=== PATIENT | female | born 1965 | race Caucasian/White ===

== ENCOUNTER → 2017-11-08 07:39 | Outpatient (CLI) | payer OTHER, SELFPAY ==
[2017-11-08 08:13] LABS: Absolute Lymphocyte Count 2.46 X10^3/ul (0.83-4.51); Absolute Neutrophil Count 3.1 X10^3/uL (2.0-7.7); Basophil# 0.02 X10^3/uL; Basophil% 0.3 % (0-1); Eosinophil# 0.16 X10^3/uL; Eosinophils% 2.6 % (0-5); Hematocrit 36.7 % (37-47); Hemoglobin 11.8 g/dl (12.0-15.0); Lymphocyte # 2.46 X10^3/ul (4.0); Lymphocyte % 40.1 % (19-41); Mean Corp Hgb Conc 32.2 g/gl (32-36); Mean Corpuscular Hgb 28.4 pg (27.0-32.0); Mean Corpuscular Volume 88.4 fL (81-99); Mean Platelet Vol. 8.2 fl (6.2-12.0); Monocyte# 0.39 X10^3/uL; Monocyte% 6.4 % (0-10); Neutrophil % 50.6 % (47-70); Platelet Count 226 K/mm3 (150-450); RBC Distribution Width CV 13.2 % (11.6-14.6); RBC Distribution Width SD 42.9 fl (35.1-43.9); Red Blood Count 4.15 M/mm3 (4.2-5.4); White Blood Count 6.1 K/mm3 (4.4-11.0)
[2017-11-08 08:16] LABS: POSITIVE COUNT NO; POSITIVE DIFFERENTIAL NO; POSITIVE MORPHOLOGY NO
[2017-11-08 08:42] LABS: ALB/GLOB Ratio 1.2 RATIO (0.9-2.4); AST(SGOT) 32 U/L (15-37); Alanine Aminotransfer ALT/SGPT 41 U/L (13-56); Albumin, Serum 4.2 g/dL (3.2-5.0); Alkaline Phosphatase 116 U/L (45-117); Anion Gap 7 (5-15); BUN 11 mg/dL (7-18); BUN/Creat Ratio 16.5 RATIO (10-20); Calcium,Total 9.2 mg/dL (8.5-10.1); Chloride 101 mmol/L (98-107); Creatinine, Serum 0.67 mg/dL (0.55-1.02); EST Glomerular Filtration Rate 100 mL/min (>60); Est Glom Filt Rate - Afr Amer 120 mL/min (>60); Globulin 3.5 g/dL (2.2-4.2); Glucose 82 mg/dL (74-106); Potassium 3.6 mmol/L (3.5-5.1); Protein, Total 7.7 g/dL (6.4-8.2); Sodium Level 139 mmol/L (136-145)
== END ==
PROVIDERS: Family Provider Family Medicine; PCP Family Medicine; Visit Provider Internal Medicine Rheumatology
DX: M06.4 Inflammatory polyarthropathy (principal); M35.00 Sjogren syndrome, unspecified; M70.61 Trochanteric bursitis, right hip
CPT/HCPCS: 36415; 80053; 85025

== ENCOUNTER 2018-03-18 11:56 | Day surgery (SDC) | payer OTHER, SELFPAY ==
[2018-03-18 12:12] VITALS: BP 130/64; PULSE 59; RESP 16; TEMP 36; O2SAT 100; BMI 24.0
--- NOTE | 2018-03-18 14:09 | HP.PCM_ITS ---
History and Physical Date of Admission: 03/18/18 HISTORY AND PHYSICAL ? Kylie Bass 1965 ? REFERRING PHYSICIAN: ~~Francisco Eddy, DO ? CHIEF COMPLAINT: ~~colon consult ? HPI: The patient is a 52 year old female referred for endoscopy. ~Kylie notes no history of colon complaints. ? The patient ~notes no history of upper GI complaints. ? Kylie has not~undergone prior endoscopy. ~ ? The patient is being seen by me today at the request of Dr. Eddy~for my opinion and advice regarding screening colonoscopy. ? ? PAST MEDICAL HISTORY PAST MEDICAL HISTORY Diagnosis Date ? Allergic rhinitis ? ? Degeneration of cervical intervertebral disc 09/26/2007 ? cervical spine MRI 2006 [facility] ? Fibroma of foot ? ? Muscle strains and tendinitis 04/17/2007 ? Right shoulder, right elbow, left knee ? Sjoegren syndrome (HCC) ? ? ? PAST SURGICAL HISTORY PAST SURGICAL HISTORY Procedure Laterality Date ? BIOPSY OF LACRIMAL GLAND ? 07/02/12 ? right ? PAST SURGICAL HISTORY OF ? 1994 ? [facility] ? PAST SURGICAL HISTORY OF ? 01/22/2014 ? Knee surgery, laparoscopic (Dr. Lee)--Synovectomy and arthroscopic lateral release right knee ? ? CURRENT MEDICATIONS ? Current Outpatient Prescriptions: cycloSPORINE (RESTASIS) 0.05 % ophthalmic emulsion Use 1 Drop in both eyes twice daily. hydroxychloroquine (PLAQUENIL) 200 mg tablet Take 2 tablets by mouth once daily. ibuprofen 800 mg tablet Take 1 tablet by mouth every 8 hours as needed. FOR PAIN. (Patient not taking: Reported on 01/23/2018 ) ? No current facility-administered medications for this visit. ? ALLERGIES: Patient has no known allergies. ? PERSONAL HISTORY: SOCIAL HISTORY Social History ~~Marital status: ~~~~~~~~~~~~Spouse name: Nikunj ~~~~~~~~~~ ~~Years of education: 14 ~~~~~~~~~~~~~Number of children: 2 ~~~~~~~~ ? Occupational History Occupation ~~~~~~~~~Employer ~~~~~~~~~~~Comment ~~~~~~~~~~~~ [employer] ~[employer] ? Social History Main Topics ~~Smoking status: Never Smoker ~~~~~~~~~~~~~~~~~~~~~~~~~~~~~~~~~~~~~~~~~~~~~~~~~ ~~~~~~~~ ? ~~Alcohol use: No ~~~~~~~~~ ~~Sexual activity: Yes ~~~~~~~~~~~~~~Partners with: Male ~~~~~ control/protection: Vasectomy ? ? FAMILY HISTORY: FAMILY HISTORY FAMILY HISTORY Problem Relation Age of Onset ? Cancer Mother ? ? ? Breast, cervical, Liver ? Heart Mother ? ? Cataract Mother ? ? Cancer Father ? ? ? Lung (smoker) ? Hypertension Father ? ? Diabetes Father ? ? None Sister ? ? None Sister ? ? None Sister ? ? None Sister ? ? None Brother ? ? None Brother ? ? REVIEW OF SYMPTOMS: ~~The review of systems data was entered by the nurse and reviewed by me ? Nursing Notes: Leeann Ritter LPN ~01/23/2018 ~7:54 AM ~Signed REVIEW OF SYSTEMS: ~~~~~General:~~~The patient denies fatigue, denies weight loss, denies weight gain, denies feeling hot, and NOTES feelings of cold. ~~~~~Eyes: ~The patient denies glaucoma, denies eye injury/surgery, wears glasses or contacts. ~~~~~Ear/Nose/Throat: ~The patient denies allergies, denies hayfever, denies ear infections, and denies bloody noses. ~~~~~Cardiovascular: ~The patient denies chest pain, denies heart disease, denies high blood pressure,denies cardiac stent, denies prior heart attack, denies irregular heart beat, denies high cholesterol, ~denies poor circulation, denies heart failure, other cardiac issues, denies claudication, denies cold feet, denies peripheral arterial stent. ~~~~~Respiratory: ~The patient denies tuberculosis, denies pneumonia, denies frequent cough, denies pulmonary embolism, denies shortness of breath, and denies coughing up blood. ~~~~~Gastrointestinal: ~The patient denies difficulty swallowing, denies acid reflux, denies ulcers, denies vomiting, denies jaundice/hepatitis, denies gallbladder problems, denies black or tarry stools, denies hemorrhoids, denies bleeding from rectum, denies diverticulitis, NOTES constipation, denies diarrhea , denies loss of stool control, and denies hernias. ~~~~~Kidney/Bladder: ~The patient denies kidney stones, denies urine infections , and denies bloody urine. ~~~~~Skin: ~The patient denies a history of skin cancer, denies bleeding/ changing moles, and denies a history of skin rash. ~~~~~Neurologic: ~The patient denies a history of epilepsy/convulsions, denies headaches, denies head/spinal injuries, and denies stroke/TIA. ~~~~~Psychiatric: ~The patient denies psychiatric medications, denies depression , and denies voices, denies substance abuse. ~~~~~Endocrine: ~The patient denies thyroid disorders, denies diabetes, and denies hormonal problems. ~~~~~Hematologic: ~The patient denies a history of bruising, denies bleeding, and denies anemia, denies blood clots. ~~~~~Infections: ~The patient denies a history of measles and mumps, denies rheumatic fever, and denies sexually transmitted diseases. ~~~~~Musculoskeletal: ~The patient denies back pain/injury, denies back problems , denies sciatica, denies knee/foot trouble, NOTES arthritis, or denies gout. ? ? When was patient's last Mammogram screening? 03/2017 ? ~Last Colonoscopy: ~None ? Leeann Ritter LPN ~ PHYSICAL EXAMINATION: ? General: ~The patient is 52 year old female, well nourished, well hydrated in no acute distress. ~The patient is oriented to time, place, and person. ? VITALS: Blood pressure 110/58, pulse 64, height 162.6 cm (5' 4), weight 64.9 kg (143 lb).~Body mass index is 24.55 kg/m?.~ ? HEENT: ~Normal cephalic, ataumatic, pupils are equally round, sclera are anicteric, mucous membranes are moist, oropharynx is clear. ~Neck has no masses , asymmetry or lymphadenopathy. ~Thyroid is unremarkable. ? Respiratory: ~Clear to auscultation and percussion. ~Normal respiratory excursion and pattern. ? Cardiac: ~Examination is regular rate and rhythm. ? Abdominal exam: ~Soft, nontender, ~with no palpable masses. ~No hepatosplenomegaly. ~No palpable hernias. ? Rectal exam: exam deferred ? Extremities: ~no clubbing, cyanosis or edema. ~No adenopathy. ? Other: ? LABORATORY VALUES: As Noted ? RADIOLOGIC STUDIES: ~As Noted ? Assessment ~ IMPRESSION: screening colonoscopy ? PLAN: ~I plan to perform lower~endoscopy. ~~We discussed the risks and benefits of the planned endoscopy. ~I have informed the patient that complications can occur including failure to complete the endoscopy and perforation. ~The patient had the opportunity to ask questions concerning the planned endoscopy. ~My staff has also explained the procedure to the patient in understandable terms and has given the patient printed material concerning the procedure. ~The patient freely consents to surgery. ? I plan to use golytely bowel preparation for endoscopy ? I plan for monitored anesthetic care. ? Diagnoses: (Z12.11) Special screening for malignant neoplasms, colon ~(primary encounter diagnosis) ? My findings have been communicated to Dr. Eddy~via shared medical record. ~ ? ~~ Return to Clinic: The patient is instructed to follow-up with me after the testing has been completed. ? Hong Bingham MD
[2018-03-18 15:35] VITALS: BP 110/61; BP 130/64; PULSE 76; RESP 18; TEMP 36.4; O2SAT 99
[2018-03-18 15:40] VITALS: BP 120/57; BP 130/64; PULSE 78; RESP 18; O2SAT 97
[2018-03-18 15:45] VITALS: BP 103/73; BP 130/64; PULSE 68; RESP 18; O2SAT 96
[2018-03-18 15:50] VITALS: BP 130/64; BP 142/71; PULSE 64; RESP 16; TEMP 36.3; O2SAT 97
--- NOTE | 2018-03-18 19:04 | PCM.OPRPT ---
Report of Operation Date of Procedure: 03/18/18 Pre-Operative Diagnosis: screening for colon cancer Post-Operative Diagnosis: normal colonoscopy Surgery/Procedure Performed:: colonoscopy publishing director: None Type of Anesthesia:: MAC Anesthesiologist: Kaden Nguyễn - ASA2 Specimen's removed: none Description of Procedure: The patient was brought to the endoscopy suite. Sign in was performed verifying patient, site, planned procedure, critical nursing information, the patient was monitored with cardiac, pulse oximetric, and blood pressure monitoring devices. Monitored anesthetic care was provided for sedation. Following IV sedation the patient was positioned for colonoscopy. A digital rectal exam was performed which revealed no palpable abnormalities The video colonoscope was inserted and advanced to the cecum as verified by the ileocecal valve, cecal base anatomic features and palpation. the entire colon was unremarkable. The scope was retroflexed and the anal verge was unremarkable. The patient tolerated the procedure well and was brought to recovery in stable condition. I recommend follow-up screening colonoscopy in 10 years.
== END 2018-03-18 16:17 | disposition home or self-care (01) ==
LOC: EN 11:56 → AC 11:58
PROVIDERS: Family Provider Family Medicine; PCP Family Medicine; Visit Provider Surgery
PROC: 0DJD8ZZ Inspection of Lower Intestinal Tract, Via Natural or Artificial Opening Endoscopic (ICD-10-PCS; CPT 45378; principal; 2018-03-18 12:55)
DX: Z12.11 Encounter for screening for malignant neoplasm of colon (principal); M35.00 Sjogren syndrome, unspecified; Z79.899 Other long term (current) drug therapy; Z78.0 Asymptomatic menopausal state
CPT/HCPCS: 45378; J7120; J2405

== ENCOUNTER → 2018-04-11 13:13 | Outpatient (CLI) | payer OTHER, SELFPAY ==
[2018-04-11 15:48] LABS: Absolute Lymphocyte Count 1.33 X10^3/ul (0.83-4.51); Absolute Neutrophil Count 3.3 X10^3/uL (2.0-7.7); Basophil# 0.01 X10^3/uL; Basophil% 0.2 % (0-1); Eosinophil# 0.08 X10^3/uL; Eosinophils% 1.6 % (0-5); Hematocrit 39.7 % (37-47); Hemoglobin 12.9 g/dl (12.0-15.0); Lymphocyte # 1.33 X10^3/ul (4.0); Lymphocyte % 25.8 % (19-41); Mean Corp Hgb Conc 32.5 g/gl (32-36); Mean Corpuscular Hgb 29.1 pg (27.0-32.0); Mean Corpuscular Volume 89.6 fL (81-99); Mean Platelet Vol. 8.7 fl (6.2-12.0); Monocyte# 0.41 X10^3/uL; Platelet Count 307 K/mm3 (150-450); RBC Distribution Width CV 13.2 % (11.6-14.6); RBC Distribution Width SD 42.9 fl (35.1-43.9); Red Blood Count 4.43 M/mm3 (4.2-5.4); White Blood Count 5.2 K/mm3 (4.4-11.0)
[2018-04-11 15:49] LABS: POSITIVE COUNT NO; POSITIVE DIFFERENTIAL NO; POSITIVE MORPHOLOGY NO
[2018-04-11 16:20] LABS: ALB/GLOB Ratio 1.1 RATIO (0.9-2.4); AST(SGOT) 21 U/L (15-37); Alanine Aminotransfer ALT/SGPT 28 U/L (13-56); Albumin, Serum 3.9 g/dL (3.2-5.0); Alkaline Phosphatase 115 U/L (45-117); Anion Gap 4 (5-15); BUN 12 mg/dL (7-18); Chloride 105 mmol/L (98-107); Creatinine, Serum 0.67 mg/dL (0.55-1.02); EST Glomerular Filtration Rate 99 mL/min (>60); Est Glom Filt Rate - Afr Amer 120 mL/min (>60); Globulin 3.7 g/dL (2.2-4.2); Glucose 71 mg/dL (74-106); Potassium 4.1 mmol/L (3.5-5.1); Protein, Total 7.6 g/dL (6.4-8.2); Sodium Level 140 mmol/L (136-145)
== END ==
PROVIDERS: Family Provider Family Medicine; PCP Family Medicine; Visit Provider Family Medicine
DX: M06.4 Inflammatory polyarthropathy (principal); M35.00 Sjogren syndrome, unspecified; M70.61 Trochanteric bursitis, right hip
CPT/HCPCS: 36415; 80053; 85025

== ENCOUNTER 2018-05-14 08:53 | Outpatient (RCR) | payer OTHER, SELFPAY | END 2018-05-24 23:59 | LOC: NS 08:53 | PROVIDERS: Family Provider Family Medicine; PCP Family Medicine; Visit Provider Family Medicine | DX: E66.3 Overweight (principal); Z68.24 Body mass index [BMI] 24.0-24.9, adult; Z71.3 Dietary counseling and surveillance | CPT/HCPCS: 97802 ==

== ENCOUNTER → 2018-05-20 14:34 | Outpatient (CLI) | payer OTHER, SELFPAY | PROVIDERS: Family Provider Family Medicine; PCP Family Medicine; Visit Provider Family Medicine | DX: Z12.31 Encounter for screening mammogram for malignant neoplasm of breast (principal) | CPT/HCPCS: 77063; 77067 ==

== ENCOUNTER 2018-06-10 08:50 | Outpatient (RCR) | payer OTHER, SELFPAY | END 2018-06-23 23:59 | LOC: NS 08:50 | PROVIDERS: Family Provider Family Medicine; PCP Family Medicine; Visit Provider Family Medicine | DX: E66.3 Overweight (principal); Z68.24 Body mass index [BMI] 24.0-24.9, adult; Z71.3 Dietary counseling and surveillance | CPT/HCPCS: 97803 ==

== ENCOUNTER 2018-07-15 09:00 | Outpatient (RCR) | payer OTHER, SELFPAY | END 2018-07-24 23:59 | LOC: NS 09:00 | PROVIDERS: Family Provider Family Medicine; PCP Family Medicine; Visit Provider Family Medicine | DX: E66.3 Overweight (principal); Z68.24 Body mass index [BMI] 24.0-24.9, adult; Z71.3 Dietary counseling and surveillance | CPT/HCPCS: 97803 ==

== ENCOUNTER 2018-08-05 09:01 | Outpatient (RCR) | payer OTHER, SELFPAY | END 2018-08-23 23:59 | LOC: NS 09:01 | PROVIDERS: Family Provider Family Medicine; PCP Family Medicine; Visit Provider Family Medicine | DX: E66.3 Overweight (principal); Z68.24 Body mass index [BMI] 24.0-24.9, adult; Z71.3 Dietary counseling and surveillance | CPT/HCPCS: 97803 ==

== ENCOUNTER → 2018-08-09 16:00 | Outpatient (CLI) | payer OTHER, SELFPAY ==
[2018-08-14 15:59] LABS: HPV Reflexed? NOT INDICATED
== END ==
PROVIDERS: Family Provider Family Medicine; PCP Family Medicine; Referring Provider Obstetrics & Gynecology; Visit Provider Obstetrics & Gynecology
DX: Z12.4 Encounter for screening for malignant neoplasm of cervix (principal)
CPT/HCPCS: 88175; G0145

== ENCOUNTER 2018-09-19 08:30 | Outpatient (RCR) | payer OTHER, SELFPAY | END 2018-09-23 23:59 | LOC: NS 08:30 | PROVIDERS: Family Provider Family Medicine; PCP Family Medicine; Visit Provider Family Medicine | DX: E66.3 Overweight (principal); Z68.24 Body mass index [BMI] 24.0-24.9, adult; Z71.3 Dietary counseling and surveillance | CPT/HCPCS: 97803 ==

== ENCOUNTER 2018-10-22 08:30 | Outpatient (RCR) | payer OTHER, SELFPAY | END 2018-10-24 23:59 | LOC: NS 08:30 | PROVIDERS: Family Provider Family Medicine; PCP Family Medicine; Visit Provider Family Medicine | DX: E66.3 Overweight (principal); Z68.24 Body mass index [BMI] 24.0-24.9, adult; Z71.3 Dietary counseling and surveillance | CPT/HCPCS: 97803 ==

== ENCOUNTER 2018-12-02 09:23 | Outpatient (RCR) | payer OTHER, SELFPAY | END 2018-12-22 23:59 | LOC: NS 09:23 | PROVIDERS: Family Provider Family Medicine; PCP Family Medicine; Visit Provider Family Medicine | DX: E66.3 Overweight (principal); Z68.24 Body mass index [BMI] 24.0-24.9, adult; Z71.3 Dietary counseling and surveillance | CPT/HCPCS: 97803 ==

== ENCOUNTER → 2019-06-05 12:14 | Outpatient (CLI) | payer OTHER, SELFPAY ==
--- NOTE | 2019-06-05 12:16 | BI_ITS ---
MAMMOGRAPHY - BILATERAL SCREENING REASON FOR EXAM: Female, 54 years old. Routine annual screening examination. PERTINENT HISTORY: Mother with breast cancer. Aunts with breast cancer. TECHNIQUE: Digital bilateral breast mounika (3D mammographic acquisition) in the CC and MLO projections. 2-D mediolateral oblique (MLO) and craniocaudad (CC) views of both breasts were obtained. CAD: Full Field Digital Mammography with Computer Added Detection was performed. COMPARISON: Comparison is made with prior study dated May 20, 2018 and May 17, 2017 FINDINGS: Breast Composition: The breasts are heterogeneously dense, which may obscure small masses. There are no dominant masses or suspicious calcifications. No other significant abnormalities are identified. There has been no significant change since the prior study. BI/SCREEN MAMM (CAD) W/MOUNIKA BILAT IMPRESSION: Stable bilateral screening mammogram. Yearly follow-up mammogram recommended. (A) ASSESSMENT CATEGORY: BIRADS Category 1: Negative. A letter regarding these results will be sent to the patient by the facility within 30 days. Approximately 10% of breast cancers are not detected by mammography. A normal mammogram should not delay biopsy of a clinically suspicious abnormality. [id number] Electronically Signed: Beck Qiu, at 8:58 EDT , Service support ,
== END ==
PROVIDERS: Family Provider Family Medicine; PCP Family Medicine; Referring Provider Family Medicine; Visit Provider Family Medicine
DX: Z12.31 Encounter for screening mammogram for malignant neoplasm of breast (principal)
CPT/HCPCS: 77063; 77067

== ENCOUNTER → 2019-08-11 15:37 | Outpatient (CLI) | payer OTHER, SELFPAY ==
[2019-08-14 12:07] LABS: Age Gdln ACOG Testing 30-65 (.)
[2019-08-14 13:38] LABS: HPV APTIMA, High Risk Negative (Negative)
[2019-08-14 13:39] LABS: HPV Reflexed? YES, CHARGE PATIENT
== END ==
LOC: WOBLAB 15:38 → LABSPEC 15:46
PROVIDERS: PCP Family Medicine; Visit Provider Obstetrics & Gynecology
DX: Z12.4 Encounter for screening for malignant neoplasm of cervix (principal)
CPT/HCPCS: 87624; 88175; G0145

== ENCOUNTER → 2020-02-20 09:56 | Outpatient (CLI) | payer OTHER, SELFPAY ==
--- NOTE | 2020-02-20 09:59 | RAD_ITS ---
STUDY: X-RAY - RIGHT FOOT CLINICAL: Female, 54 years old. Right heel pain since October TECHNIQUE: 3 view(s) of the foot. COMPARISON: None. FINDINGS: There is a plantar calcaneal spur. Normal visualized subtalar, talonavicular, calcaneocuboid, tarsal and tarsometatarsal articulations. Normal metatarsi. Normal metatarsophalangeal joint of the great toe. Normal tibial and fibular sesamoid bones. Normal interphalangeal joint of the great toe. Normal phalanges of the great toe. Normal second through fifth metatarsophalangeal joints. Normal interphalangeal joints and phalanges of the lesser toes. The soft tissue structures are unremarkable. RAD/Foot min 3 Views IMPRESSION: Plantar spur. Electronically Signed: Beck Qiu, at 10:28 EDT , Service support ,
--- NOTE | 2020-02-20 09:59 | RAD_ITS ---
STUDY: X-RAY - LEFT FOOT CLINICAL: Female, 54 years old. Pain since October, some small bumps along bottom of foot TECHNIQUE: 3 view(s) of the foot. COMPARISON: None. FINDINGS: There is a plantar calcaneal spur. Normal visualized subtalar, talonavicular, calcaneocuboid, tarsal and tarsometatarsal articulations. Normal metatarsi. Normal metatarsophalangeal joint of the great toe. Normal tibial and fibular sesamoid bones. Normal interphalangeal joint of the great toe. Normal phalanges of the great toe. Normal second through fifth metatarsophalangeal joints. Normal interphalangeal joints and phalanges of the lesser toes. The soft tissue structures are unremarkable. RAD/Foot min 3 Views IMPRESSION: Plantar spur. Electronically Signed: Beck Qiu, at 10:30 EDT , Service support ,
== END ==
PROVIDERS: PCP Family Medicine; Referring Provider Podiatrist; Visit Provider Podiatrist
DX: M72.2 Plantar fascial fibromatosis (principal)
CPT/HCPCS: 73630

== ENCOUNTER 2020-06-23 08:08 | Outpatient (RCR) | payer OTHER, SELFPAY | END 2020-06-23 23:59 | LOC: EMPH 08:08 | PROVIDERS: PCP Family Medicine; Referring Provider Family Medicine Geriatric Medicine; Visit Provider Family Medicine Geriatric Medicine | DX: Z11.59 Encounter for screening for other viral diseases (principal) | CPT/HCPCS: 87635; U0003 ==

== ENCOUNTER → 2020-07-23 13:53 | Outpatient (CLI) | payer OTHER, SELFPAY ==
--- NOTE | 2020-07-23 13:57 | BI_ITS ---
MAMMOGRAPHY - BILATERAL SCREENING REASON FOR EXAM: Female, 55 years old. Routine annual screening examination. PERTINENT HISTORY: Mother with breast cancer. Aunts with breast cancer. TECHNIQUE: Digital bilateral breast mounika (3D mammographic acquisition) in the CC and MLO projections. 2-D mediolateral oblique (MLO) and craniocaudad (CC) views of both breasts were obtained. CAD: Full Field Digital Mammography with Computer Added Detection was performed. COMPARISON: Comparison is made with prior study date 06/05/2019 and 05/20/2018. FINDINGS: Breast Composition: The breasts are heterogeneously dense, which may obscure small masses. There are no dominant masses or suspicious calcifications. No other significant abnormalities are identified. There has been no significant change since the prior study. BI/SCREEN MAMM (CAD) W/MOUNIKA BILAT IMPRESSION: Stable bilateral screening mammogram. Yearly follow-up mammogram recommended. (A) ASSESSMENT CATEGORY: BIRADS Category 1: Negative. A letter regarding these results will be sent to the patient by the facility within 30 days. Approximately 10% of breast cancers are not detected by mammography. A normal mammogram should not delay biopsy of a clinically suspicious abnormality. [id number] Electronically Signed: Beck Qiu, at 15:22 EDT , Service support ,
== END ==
PROVIDERS: PCP Family Medicine; Referring Provider Family Medicine; Visit Provider Family Medicine
DX: Z12.31 Encounter for screening mammogram for malignant neoplasm of breast (principal)
CPT/HCPCS: 77063; 77067

== ENCOUNTER → 2020-08-16 | Outpatient (CLI) | payer OTHER, SELFPAY ==
[2020-08-23 01:45] LABS: HPV APTIMA, High Risk Negative (Negative)
== END | disposition home or self-care (01) ==
LOC: LABSPEC 15:34
PROVIDERS: PCP Family Medicine; Visit Provider Obstetrics & Gynecology
DX: Z12.4 Encounter for screening for malignant neoplasm of cervix (principal)
CPT/HCPCS: 87624; 88175; G0145

== ENCOUNTER 2021-01-19 07:16 | Outpatient (RCR) | payer OTHER, SELFPAY | END 2021-01-21 23:59 | LOC: EMPH 07:16 | PROVIDERS: PCP Family Medicine; Referring Provider Family Medicine Geriatric Medicine; Visit Provider Family Medicine Geriatric Medicine | DX: Z03.818 Encounter for observation for suspected exposure to other biological agents ruled out (principal) | CPT/HCPCS: 87426 ==

== ENCOUNTER 2021-02-16 09:10 | Outpatient (RCR) | payer OTHER, SELFPAY | END 2021-02-21 23:59 | LOC: EMPH 09:10 | PROVIDERS: PCP Family Medicine; Referring Provider Family Medicine Geriatric Medicine; Visit Provider Family Medicine Geriatric Medicine | DX: Z03.818 Encounter for observation for suspected exposure to other biological agents ruled out (principal) | CPT/HCPCS: 87426 ==

== ENCOUNTER → 2021-05-03 13:49 | Outpatient (CLI) | payer OTHER, SELFPAY ==
[2021-05-03 15:53] LABS: Vitamin D,25 Hydroxy 37.8 ng/mL
[2021-05-03 15:56] LABS: T4 Free Direct 0.91 ng/dL (0.76-1.46); Thyroid Stim Hormone (TSH) 1.14 uIU/mL (0.358-3.74)
== END ==
PROVIDERS: PCP Family Medicine; Referring Provider Family Medicine; Visit Provider Family Medicine
DX: K59.00 Constipation, unspecified (principal); R53.83 Other fatigue; E55.9 Vitamin D deficiency, unspecified
CPT/HCPCS: 36415; 82306; 84439; 84443

== ENCOUNTER → 2021-07-25 11:03 | Outpatient (CLI) | payer OTHER, SELFPAY ==
--- NOTE | 2021-07-25 11:06 | BI_ITS ---
MAMMOGRAPHY - BILATERAL SCREENING REASON FOR EXAM: Female, 56 years old. Routine annual screening examination. PERTINENT HISTORY: Mother with breast cancer. Aunts with breast cancer. TECHNIQUE: Digital bilateral breast mounika (3D mammographic acquisition) in the CC and MLO projections. 2-D mediolateral oblique (MLO) and craniocaudad (CC) views of both breasts were obtained. CAD: Full Field Digital Mammography with Computer Added Detection was performed. COMPARISON: Comparison is made with prior study 07/23/2020 and 06/05/2019. FINDINGS: Breast Composition: The breasts are heterogeneously dense, which may obscure small masses. There are no dominant masses or suspicious calcifications. No other significant abnormalities are identified. There has been no significant change since the prior study. BI/SCRN MAMM (CAD)W/MOUNIKA BILAT IMPRESSION: Stable bilateral screening mammogram. Yearly follow-up mammogram recommended. (A) ASSESSMENT CATEGORY: BIRADS Category 1: Negative. A letter regarding these results will be sent to the patient by the facility within 30 days. Approximately 10% of breast cancers are not detected by mammography. A normal mammogram should not delay biopsy of a clinically suspicious abnormality. [id number] Electronically Signed: Beck Qiu MD at 13:06 EDT , Service support ,
== END ==
PROVIDERS: PCP Family Medicine; Visit Provider Family Medicine
DX: Z12.31 Encounter for screening mammogram for malignant neoplasm of breast (principal)
CPT/HCPCS: 77063; 77067

== ENCOUNTER 2021-12-26 13:38 | Outpatient (CLI) | payer OTHER, SELFPAY ==
[2022-01-03 13:42] LABS: HPV APTIMA, High Risk Negative (Negative)
== END 2021-12-26 23:59 | disposition home or self-care (01) ==
PROVIDERS: PCP Family Medicine; Visit Provider Student in an Organized Health Care Education/Training Program
DX: Z12.4 Encounter for screening for malignant neoplasm of cervix (principal)
CPT/HCPCS: 87624; 88175; G0145

== ENCOUNTER 2022-05-18 09:54 | Outpatient (RCR) | payer OTHER, SELFPAY | END 2022-05-24 23:59 | LOC: NS 09:54 | PROVIDERS: PCP Family Medicine; Visit Provider Family Medicine | DX: Z71.3 Dietary counseling and surveillance (principal); E66.3 Overweight; Z68.25 Body mass index [BMI] 25.0-25.9, adult | CPT/HCPCS: 97802 ==

== ENCOUNTER 2022-06-12 13:28 | Outpatient (RCR) | payer OTHER, SELFPAY | END 2022-06-23 23:59 | LOC: NS 13:28 | PROVIDERS: PCP Family Medicine; Visit Provider Family Medicine | DX: Z71.3 Dietary counseling and surveillance (principal) | CPT/HCPCS: 97803 ==

== ENCOUNTER 2022-07-20 14:20 | Outpatient (RCR) | payer OTHER, SELFPAY | END 2022-07-24 23:59 | LOC: NS 14:20 | PROVIDERS: PCP Family Medicine; Referring Provider Family Medicine; Visit Provider Family Medicine | DX: Z71.3 Dietary counseling and surveillance (principal) | CPT/HCPCS: 97803 ==

== ENCOUNTER 2022-08-07 12:53 | Outpatient (RCR) | payer OTHER, SELFPAY | END 2022-08-23 23:59 | LOC: NS 12:53 | PROVIDERS: PCP Family Medicine; Referring Provider Family Medicine; Visit Provider Family Medicine | DX: Z71.3 Dietary counseling and surveillance (principal); E66.9 Obesity, unspecified | CPT/HCPCS: 97803 ==

== ENCOUNTER → 2022-08-11 | Outpatient (CLI) | payer OTHER, SELFPAY ==
--- NOTE | 2022-08-11 14:27 | BI_ITS ---
MAMMOGRAPHY - BILATERAL SCREENING REASON FOR EXAM: Female, 57 years old. Routine annual screening examination. PERTINENT HISTORY: Mother with breast cancer. Aunt with breast cancer. TECHNIQUE: Digital bilateral breast mounika (3D mammographic acquisition) in the CC and MLO projections. 2-D mediolateral oblique (MLO) and craniocaudad (CC) views of both breasts were obtained. CAD: Full Field Digital Mammography with Computer Added Detection was performed. COMPARISON: Comparison is made with prior study 07/25/2021 and 07/23/2020. FINDINGS: Breast Composition: The breasts are heterogeneously dense, which may obscure small masses. There are no dominant masses or suspicious calcifications. No other significant abnormalities are identified. There has been no significant change since the prior study. BI/SCRN MAMM (CAD)W/MOUNIKA BILAT IMPRESSION: Stable bilateral screening mammogram. Yearly follow-up mammogram recommended. (A) ASSESSMENT CATEGORY: BIRADS Category 1: Negative. A letter regarding these results will be sent to the patient by the facility within 30 days. Approximately 10% of breast cancers are not detected by mammography. A normal mammogram should not delay biopsy of a clinically suspicious abnormality. [id number] Electronically Signed: Beck Qiu MD at 15:28 EST ,
== END | disposition home or self-care (01) ==
LOC: OPBI 14:26
PROVIDERS: PCP Family Medicine; Referring Provider Family Medicine; Visit Provider Family Medicine
DX: Z12.31 Encounter for screening mammogram for malignant neoplasm of breast (principal); Z80.3 Family history of malignant neoplasm of breast
CPT/HCPCS: 77063; 77067

== ENCOUNTER → 2022-11-08 | Outpatient (CLI) | payer OTHER, SELFPAY ==
[2022-11-08 11:11] LABS: Mucous, Urine 0 SEEN /hpf (<or=2+); Red Blood Cells-Urine 0 SEEN /hpf (0-5)
[2022-11-08 11:30] LABS: Color, Urine Yellow (Yellow); Glucose, Dipstick Normal (Normal); Ketone-Dipstick Negative (Negative); Leukocyte Esterase-Dipstick 500 /ul (Negative); Nitrite-Dipstick Negative (Negative); Occult Blood-Urine 25 /ul (Negative); Protein-Dipstick 15 mg/dl (Negative); Urine Bilirubin Dipstick Negative (Negative); Urine Clarity Sl. Cloudy (Clear); Urine Urobilinogen Normal (Normal); Urine pH 6.5 (5.0 - 8.0)
[2022-11-08 11:49] LABS: Bacteria RARE /hpf (None Seen); Squamous Epithelial Cells - UA 0-5 SEEN /hpf (5-10); White Blood Cells 5-10 SEEN /hpf (0-5)
== END | disposition home or self-care (01) ==
LOC: LABSPEC 10:29
PROVIDERS: PCP Family Medicine; Referring Provider Physician Assistant Surgical; Visit Provider Physician Assistant Surgical
DX: R30.0 Dysuria (principal)
CPT/HCPCS: 81001; 87086

== ENCOUNTER → 2023-05-10 | Outpatient (CLI) | payer OTHER, SELFPAY ==
[2023-05-10 21:39] LABS: Vitamin D,25 Hydroxy 28.5 ng/mL
== END | disposition home or self-care (01) ==
LOC: LAB 15:40
PROVIDERS: PCP Family Medicine; Referring Provider Family Medicine; Visit Provider Family Medicine
DX: E55.9 Vitamin D deficiency, unspecified (principal)
CPT/HCPCS: 36415; 82306

== ENCOUNTER → 2023-05-24 | Outpatient (CLI) | payer OTHER, SELFPAY ==
--- NOTE | 2023-05-24 12:58 | BD_ITS ---
STUDY: DUAL ENERGY X-RAY ABSORPTIOMETRY / DXA REASON FOR EXAM: Female, 58 years old. V76.12ScreeningBONE DENSITY REASON FOR EXAM TECHNIQUE: Bone Mineral Density (BMD) measurements of lumbar spine and bilateral hips were obtained. COMPARISON: None. FINDINGS: Lumbar Spine (L1-L4): g/cm2 (0.721) / T-score (-3.0) / Z-score (-1.8) Findings are suggestive of osteoporosis with a high fracture risk. Left Femur Total: g/cm2 (0.739) / T-score (-1.7) / Z-score (-0.9) Left Femoral Neck: g/cm2 (0.639) / T-score (-1.9) / Z-score (-0.8) Right Femur Total: g/cm2 (0.759) / T-score (-1.5) / Z-score (-0.8) Right Femoral Neck: g/cm2 (0.635) / T-score (-1.9) / Z-score (0.8) BD/Dexa Bone Density Study IMPRESSION: The patient is considered osteoporotic as outlined below according to World [employer] Organization (WHO) criteria with a high fracture risk. Reference Information: The T-score is the number of standard deviations above or below the standard which is normal for young adults at their peak bone mineral density. The World Health Organization (WHO) interprets the T-scores as follows: Above -1 Normal bone density Between -1 and -2.5 Osteopenia Equal to / or below -2.5 Osteoporosis As a practical clinical guideline, osteopenia may be graded as follows: Mild -1 through -1.5 Moderate -1.6 through -2.0 Severe -2.1 through -2.4 The Z-score is the number of standard deviations above or below age-matched controls. A Z-score of less than -1.5 would be considered abnormal. References: 1. NIH Osteoporosis and Related Bone Diseases www osteo.org 2. International Society for Clinical Densitometry www iscd.org 3. National Osteoporosis Foundation www nof.org Electronically Signed: Beck Qiu MD at 12:28 EDT ,
== END | disposition home or self-care (01) ==
LOC: OPBD 12:50
PROVIDERS: PCP Family Medicine; Referring Provider Family Medicine; Visit Provider Family Medicine
DX: Z13.820 Encounter for screening for osteoporosis (principal)
CPT/HCPCS: 77080

== ENCOUNTER 2023-06-21 13:26 | Outpatient (CLI) | payer OTHER, SELFPAY ==
[2023-06-21 13:43] VITALS: BP 115/48; PULSE 70; RESP 16; TEMP 36; O2SAT 100
[2023-06-21] MEDS: DENOSUMAB 60 MG/ML SC (13:48)
== END 2023-06-21 13:27 | disposition home or self-care (01) ==
LOC: MEDOUTP 13:26
PROVIDERS: PCP Family Medicine; Referring Provider Family Medicine; Visit Provider Family Medicine
DX: M81.0 Age-related osteoporosis without current pathological fracture (principal)
CPT/HCPCS: 96372; J0897

== ENCOUNTER → 2023-08-22 | Outpatient (CLI) | payer OTHER, SELFPAY ==
--- NOTE | 2023-08-22 07:32 | BI_ITS ---
MAMMOGRAPHY - BILATERAL SCREENING REASON FOR EXAM: Female, 58 years old. Routine annual screening examination. PERTINENT HISTORY: Mother with breast cancer. Aunts with breast cancer. TECHNIQUE: Digital bilateral breast mounika (3D mammographic acquisition) in the CC and MLO projections. 2-D mediolateral oblique (MLO) and craniocaudad (CC) views of both breasts were obtained. CAD: Full Field Digital Mammography with Computer Added Detection was performed. COMPARISON: Comparison is made with prior study dated August 11, 2022 and July 25, 2021. FINDINGS: Breast Composition: The breasts are heterogeneously dense, which may obscure small masses. There are no dominant masses or suspicious calcifications. No other significant abnormalities are identified. There has been no significant change since the prior study. BI/SCRN MAMM (CAD)W/MOUNIKA BILAT IMPRESSION: Stable bilateral screening mammogram. Yearly follow-up mammogram recommended. (A) ASSESSMENT CATEGORY: BIRADS Category 1: Negative. A letter regarding these results will be sent to the patient by the facility within 30 days. Approximately 10% of breast cancers are not detected by mammography. A normal mammogram should not delay biopsy of a clinically suspicious abnormality. [id number] Electronically Signed: Beck Qiu MD at 9:04 EST ,
== END | disposition home or self-care (01) ==
LOC: OPBI 07:30
PROVIDERS: PCP Family Medicine; Referring Provider Family Medicine; Visit Provider Family Medicine
DX: Z12.31 Encounter for screening mammogram for malignant neoplasm of breast (principal); Z80.3 Family history of malignant neoplasm of breast
CPT/HCPCS: 77063; 77067

== ENCOUNTER → 2023-09-13 | Outpatient (CLI) | payer OTHER, SELFPAY ==
[2023-09-13 08:38] LABS: PTHIN 102.8 pg/mL (18.4-80.1)
[2023-09-13 08:40] LABS: Vitamin D,25 Hydroxy 39.2 ng/mL
[2023-09-13 08:43] LABS: Thyroid Stim Hormone (TSH) 2.37 uIU/mL (0.358-3.74)
== END | disposition home or self-care (01) ==
LOC: LAB 07:39
PROVIDERS: PCP Family Medicine; Referring Provider Internal Medicine Endocrinology, Diabetes & Metabolism; Visit Provider Internal Medicine Endocrinology, Diabetes & Metabolism
DX: E55.9 Vitamin D deficiency, unspecified (principal); M81.0 Age-related osteoporosis without current pathological fracture
CPT/HCPCS: 36415; 82306; 83970; 84443

== ENCOUNTER → 2023-09-25 | Outpatient (CLI) | payer OTHER, SELFPAY ==
[2023-09-25 17:35] LABS: 24HR UR TOTAL VOLUME 2100 ml; Calcium Urine pH Range 2; Urine Calcium (Random) < 5.0 (Not Estab.)
== END | disposition home or self-care (01) ==
LOC: LAB 15:10
PROVIDERS: PCP Family Medicine; Referring Provider Internal Medicine Endocrinology, Diabetes & Metabolism; Visit Provider Internal Medicine Endocrinology, Diabetes & Metabolism
DX: E21.3 Hyperparathyroidism, unspecified (principal)
CPT/HCPCS: 81050; 82340

== ENCOUNTER → 2023-10-30 | Outpatient (CLI) | payer OTHER, SELFPAY ==
[2023-10-30 13:36] LABS: Calcium,Total 9.9 mg/dL (8.5-10.1)
== END | disposition home or self-care (01) ==
LOC: MTLAB 11:05
PROVIDERS: PCP Family Medicine; Referring Provider Internal Medicine Endocrinology, Diabetes & Metabolism; Visit Provider Internal Medicine Endocrinology, Diabetes & Metabolism
DX: E21.3 Hyperparathyroidism, unspecified (principal)
CPT/HCPCS: 36415; 82310; 83970

== ENCOUNTER → 2023-11-19 | Outpatient (CLI) | payer OTHER, SELFPAY ==
[2023-11-19 17:55] LABS: Anion Gap 7 (5-15); BUN 7 mg/dL (7-18); BUN/Creat Ratio 8.5 RATIO (10-20); Calcium,Total 9.3 mg/dL (8.5-10.1); Chloride 104 mmol/L (98-107); Creatinine, Serum 0.82 mg/dL (0.55-1.02); EST Glomerular Filtration Rate 77 mL/min (>60); Est Glom Filt Rate - Afr Amer 93 mL/min (>60); Glucose 93 mg/dL (74-106); Potassium 3.7 mmol/L (3.5-5.1); Sodium Level 139 mmol/L (136-145)
[2023-11-19 18:03] LABS: Vitamin D,25 Hydroxy 49.2 ng/mL
--- OUTSIDE RECORDS SUMMARY | 2023-11-19 23:11 | XMS RPT_ITS | CCD ---
Author Name Unknown Address [address] [place] [address] Organization [facility] Results Test Name Value Interpretation Reference Range Facil ity Summary Purpose Family History No Family History Records Found Advance Directives No Advanced Directives Records Found Additional Source Comments INFORMATION SOURCE (unrecogn ized section and content) FOR RECORDS PERTAINING TO PATIENTS WHO ARE OR HAVE BEEN ENROLLED IN A CHEMICAL DEPENDENCY/SUBSTANCEABUSE PROGRAM, SOME INFORMATION MAY BE OMITTED. This clinical summary was aggregated from multiple sources. Caution should be exercised in using it in the provision of clinical care. This summary normalizes information from multiple sources, and as a consequence, information in this document may materially change the coding, format and clinical context of patient data. In addition, data may be omitted in some cases. CLINICAL DECISIONS SHOULD BE BASED ON THE PRIMARY CLINICAL RECORDS. [employer] provides no warranty or guarantee of the accuracy or completeness of information in this document.
== END | disposition home or self-care (01) ==
LOC: MTLAB 14:44
PROVIDERS: PCP Family Medicine; Referring Provider Internal Medicine Endocrinology, Diabetes & Metabolism; Visit Provider Internal Medicine Endocrinology, Diabetes & Metabolism
DX: E21.3 Hyperparathyroidism, unspecified (principal); E55.9 Vitamin D deficiency, unspecified
CPT/HCPCS: 36415; 80048; 82306

== ENCOUNTER 2023-12-27 08:47 | Outpatient (CLI) | payer OTHER, SELFPAY ==
[2023-12-27 08:54] VITALS: BP 118/63; PULSE 66; RESP 16; TEMP 35.6
[2023-12-27] MEDS: DENOSUMAB 60 MG/ML SC (09:09)
== END 2023-12-27 08:48 | disposition home or self-care (01) ==
PROVIDERS: PCP Family Medicine; Referring Provider Family Medicine; Visit Provider Family Medicine
DX: M81.0 Age-related osteoporosis without current pathological fracture (principal)
CPT/HCPCS: 96372; J0897

== ENCOUNTER 2024-06-20 12:55 | Outpatient (CLI) | payer OTHER, SELFPAY ==
[2024-06-20 13:13] VITALS: BP 130/58; PULSE 57; RESP 16; TEMP 36.2; O2SAT 100; BMI 25.2
[2024-06-20] MEDS: DENOSUMAB 60 MG/ML SC (13:34)
== END 2024-06-20 23:59 | disposition home or self-care (01) ==
LOC: MEDOUTP 12:55
PROVIDERS: PCP Family Medicine; Referring Provider Family Medicine; Visit Provider Family Medicine
DX: M81.0 Age-related osteoporosis without current pathological fracture (principal)
CPT/HCPCS: 96372; J0897

== ENCOUNTER → 2024-08-25 | Outpatient (CLI) | payer OTHER, SELFPAY ==
--- NOTE | 2024-08-25 10:11 | BI_ITS ---
MAMMOGRAPHY - BILATERAL SCREENING REASON FOR EXAM: Female, 59 years old. Routine annual screening examination. PERTINENT HISTORY: Mother with breast cancer. Aunts with breast cancer. TECHNIQUE: Digital bilateral breast mounika (3D mammographic acquisition) in the CC and MLO projections. 2-D mediolateral oblique (MLO) and craniocaudad (CC) views of both breasts were obtained. CAD: Full Field Digital Mammography with Computer Added Detection was performed. COMPARISON: Comparison is made with prior study dated August 22, 2023 and August 11, 2022. FINDINGS: Breast Composition: The breasts are heterogeneously dense, which may obscure small masses. There are no dominant masses or suspicious calcifications. No other significant abnormalities are identified. There has been no significant change since the prior study. BI/SCRN MAMM (CAD)W/MOUNIKA BILAT IMPRESSION: Stable bilateral screening mammogram. Yearly follow-up mammogram recommended. (A) ASSESSMENT CATEGORY: BIRADS Category 1: Negative. A letter regarding these results will be sent to the patient by the facility within 30 days. Approximately 10% of breast cancers are not detected by mammography. A normal mammogram should not delay biopsy of a clinically suspicious abnormality. [id number] Electronically Signed: Beck Qiu MD at 14:06 EST ,
== END | disposition home or self-care (01) ==
LOC: OPBI 10:10
PROVIDERS: PCP Family Medicine; Referring Provider Family Medicine; Visit Provider Family Medicine
DX: Z12.31 Encounter for screening mammogram for malignant neoplasm of breast (principal)
CPT/HCPCS: 77063; 77067

== ENCOUNTER → 2024-10-14 | Outpatient (CLI) | payer OTHER, SELFPAY ==
--- NOTE | 2024-10-14 11:53 | RAD_ITS ---
STUDY: X-RAY - LEFT FOOT CLINICAL: Female, 59 years old. TOE PAIN, TRAUMA TECHNIQUE: 3 view(s) of the foot. COMPARISON: None. FINDINGS: There is a plantar calcaneal spur. Normal visualized subtalar, talonavicular, calcaneocuboid, tarsal and tarsometatarsal articulations. Normal metatarsi. Normal metatarsophalangeal joint of the great toe. Normal tibial and fibular sesamoid bones. Normal interphalangeal joint of the great toe. Normal phalanges of the great toe. Normal second through fifth metatarsophalangeal joints. Nondisplaced oblique fracture of the proximal phalanx of the fifth toe. Soft tissue swelling. RAD/Foot min 3 Views IMPRESSION: Nondisplaced oblique fracture of the proximal phalanx of the fifth toe with overlying soft tissue swelling. Electronically Signed: Beck Qiu MD at 12:20 EST ,
== END | disposition home or self-care (01) ==
LOC: MTRAD 11:44
PROVIDERS: PCP Family Medicine; Referring Provider Family Medicine; Visit Provider Family Medicine
DX: M79.675 Pain in left toe(s) (principal)
CPT/HCPCS: 73630

== ENCOUNTER 2024-12-19 12:28 | Outpatient (CLI) | payer OTHER, SELFPAY ==
[2024-12-19] MEDS: DENOSUMAB 60 MG/ML SC (12:50)
[2024-12-19 12:52] VITALS: BP 137/73; PULSE 68; RESP 16; TEMP 35.6; O2SAT 100
== END 2024-12-19 23:59 | disposition home or self-care (01) ==
LOC: MEDOUTP 12:29
PROVIDERS: PCP Family Medicine; Referring Provider Family Medicine; Visit Provider Family Medicine
DX: M81.0 Age-related osteoporosis without current pathological fracture (principal)
CPT/HCPCS: 96372; J0897

== ENCOUNTER → 2025-04-07 | Outpatient (CLI) | payer OTHER, SELFPAY ==
[2025-04-07 18:42] LABS: Vitamin D,25 Hydroxy 38.3 ng/mL (30-100)
--- OUTSIDE RECORDS SUMMARY | 2025-04-07 21:45 | XMS RPT_ITS | CCD ---
Author Organization [facility] CliniSypr Care Team Providers Care Cobol Engineer Name Role Phone Dr. Francisco Eddy Primary Care Provider Dr. Francisco Eddy Referring Provider [phone] MINA Warner Attending Provider [phone] Dr. Francisco Eddy Primary Care Provider Dr. Francisco Eddy Referring Provider MINA Jarvis Attending Provider Dr. Francisco Eddy Primary Care Provider Dr. Francisco Eddy Referring Provider MINA Jarvis Attending Provider Dr. Francisco Eddy Primary Care Provider Dr. Francisco Eddy Referring Provider Dr. Hank Cain Attending Provider [phone] Dr. Francisco Eddy Primary Care Provider Dr. Francisco Eddy Referring Provider [phone] Hank Cain Attending Provider [phone] Dr. Francisco Eddy DO Primary Care Provider Dr. Francisco Eddy DO Attending Provider Dr. Francisco Eddy DO Referring Provider Francisco Eddy Referring Unavailable Francisco Eddy Primary Care Unavailable Francisco Eddy Attending Unavailable Assessment, Health Risk Attending Unavaila ble Assessment, Health Risk Referring Unavaila ble Francisco Eddy Primary Care Unavailable Francisco Eddy Attending Unavailable Francisco Eddy Referring Unavailable Francisco Eddy Primary Care Unavailable NunuFrancisco hartman Attending Unavailable NunuFrancisco hartman Referring Unavailable NunuFrancisco hartman Primary Care Unavailable Hank Cain Attending Unavailable Francisco Eddy Referring Unavailable Nunu Francisco Primary Care Unavailable Nunu Francisco Attending Unavailable NunuFrancisco hartman Referring Unavailable Francisco Eddy Primary Care Unavailable NunuFrancisco hartman Attending Unavailable NunuFrancisco hartman Referring Unavailable Francisco Eddy Primary Care Unavailable Medications Current Medications Medication Drug Class(es) Dates Sig (Normalized) Sig (Original) 1.56 ml abaloparatide 2 mg/ml pen injector (10 sources) Parathyroid Hormone-Related Peptide Analog Start: 3 End: 3 Abaloparatide (Tymlos) 80 mcg (3,120 mcg/1.56 mL) pen injector Active 80 ug SC DAILY 1.56 September 07, 2023 1:45pm inject into abdomen; do not inject within 2 inches of belly button/navel; rotate sites calcium carbonate 1500 mg oral tablet (6 sources) Start: 3 take 1 tablet by mouth once daily Calcium Carbonate 600 mg calcium (1,500 mg) tablet Active 1200 mg PO DAILY August 09, 2023 1:00am cholecalciferol 0.05 mg oral capsule (6 sources) Vitamin D Start: 3 take 1 capsule by mouth once daily Cholecalciferol (Vitamin D3) 50 mcg (2,000 unit) capsule Active 100 ug PO DAILY August 09, 2023 1:00am cycloSPORINE 0.5 mg/ml ophthalmic suspension (14 sources) Calcineurin Inhibitor Immunosuppressant Start: 8 take 1 drop(s) into the eye(s) once daily Cyclosporine (Restasis Ophthalmic) 1 DROP dropperette Active 1 DRP Each Eye DAILY March 13, 2018 11:00pm Cyclosporine (Restasis Ophthalmic) 1 DROP dropperette (2 sources) Start: 8 take 1 drop(s) into the eye(s) once daily Cyclosporine (Restasis Ophthalmic) 1 DROP dropperette Active 1 NMA Each Eye DAILY March 14, 2018 12:00am Start: 03-14-2018 take 1 drop(s) into the eye(s) once daily Cyclosporine (Restasis Ophthalmic) 1 DROP dropperette Active 1 DRP Each Eye DAILY March 14, 2018 12:00am hydroxychloroquine sulfate 200 mg oral tablet (16 sources) Antimalarial, Antirheumatic Agent Start: 03-14-2018 take 2 tablets by mouth once daily Hydroxychloroquine (Plaquenil) 200 MG tablet Active 400 mg PO DAILY March 14, 2018 12:00am linaclotide 0.29 mg oral capsule (6 sources) Guanylate Cyclase-C Agonist Start: 08-09-2023 take 1 capsule by mouth once daily Linaclotide (Linzess) 290 mcg capsule Active 290 ug PO DAILY August 09, 2023 1:00am Completed/Discontinued Medications Medication Drug Class(es) Dates Sig (Normalized) Sig (Original) nitrofurantoin, macrocrystals 25 mg / nitrofurantoin, monohydrate 75 mg oral capsule (10 sources) Nitrofuran Antibacterial Start: 11-07-2022 End: 11-14-2022 take 1 capsule by mouth every twelve hours at mealtime Nitrofurantoin Monohyd/M-Cryst 100 mg capsule Discontinued 1 NMA PO Q12H 14 7 November 07, 2022 1:00am November 13, 2022 1:00am November 14, 2022 1:05am administer with a meal/food; swallow whole; do not open, crush, dissolve , or chew Problems Problem Classification Problem Date Documented Da te Episodic/Chronic Osteoporosis (14 sources) 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; Translations: [Other osteoporosis without current pathological fracture] Onset: 12-23-2024 09-07-2023 Chronic Other connective tissue disease (1 source) Pain in left toe(s); Translations: [Pain in left toe(s)] Onset: 11-03-2024 Episodic Other ear and sense organ disorders (8 sources) Impacted cerumen; Translations: [Impacted cerumen, right ear] 05-21-2023 Episodic Other ear and sense organ disorders (3 sources) Impacted cerumen, right ear; Translations: [Impacted cerumen] 05-21-2023 Episodic Other endocrine disorders (5 sources) Hyperparathyroidism ; Translations: [Hyperparathyroidis m, unspecified] 09-13-2023 Chronic Other screening for suspected conditions (not mental disorders or infectious disease) (1 source) Encounter for screening mammogram for malignant neoplasm of breast; Translations: [Encounter for screening mammogram for malignant neoplasm of breast] Onset: 09-25-2024 Episodic Other upper respiratory infections (11 sources) Upper respiratory infection; Translations: [Acute upper respiratory infection, unspecified] 05-21-2023 Episodic Urinary tract infections (11 sources) Cystitis; Translations: [Cystitis, unspecified without hematuria] 11-07-2022 Episodic Results Test Name Value Interpretation Reference Range Facility Foot min 3 Viewson Foot min 3 Views [facility] [address] [place], [place] [address] Foot min 3 Views MR#: [id number] Acct: [id number] Name: KYLIE DIXON Rep #: [id number] : 1965 F 59 From: Beck silva MD PCP: Dr. Francisco Eddy DO Status: [facility] Study: Foot min 3 Views Date of Exam: 10/14/24 Exam# [id number] Ordering Dr: Francisco Eddy DO [id number] STUDY: X-RAY - LEFT FOOT CLINICAL: Female, 59 years old. TOE PAIN, TRAUMA TECHNIQUE: 3 view(s) of the foot. COMPARISON: None. FINDINGS: There is a plantar calcaneal spur. Normal visualized subtalar, talonavicular, calcaneocuboid, tarsal and tarsometatarsal articulations. Normal metatarsi. Normal metatarsophalangeal joint of the great toe. Normal tibial and fibular sesamoid bones. Normal interphalangeal joint of the great toe. Normal phalanges of the great toe. Normal second through fifth metatarsophalangeal joints. Nondisplaced oblique fracture of the proximal phalanx of the fifth toe. Soft tissue swelling. RAD/Foot min 3 Views IMPRESSION: Nondisplaced oblique fracture of the proximal phalanx of the fifth toe with overlying soft tissue swelling. Electronically Signed: Beck Qiu MD at 12:20 EST , CC: Dr. Francisco Eddy DO Environmental Science Instructor: Signed Normal [facility] SCRN MAMM (CAD)W/MOUNIKA BILATo n 08-25-2024 SCRN MAMM (CAD)W/MOUNIKA BILAT [facility] Imaging Services [address] [place] [address] SCRN MAMM (CAD)W/MOUNIKA BILAT MR#: [id number] Acct: [id number] Name: KYLIE DIXON Rep #: [id number] : 1965 F 59 From: Beck silva MD PCP: Dr. Francisco Eddy DO Status: REG CLI Study: SCRN MAMM (CAD)W/MOUNIKA BILAT Date of Exam: 11/17 Exam# [id number] Ordering Dr: Francisco Eddy DO [id number] MAMMOGRAPHY - BILATERAL SCREENING REASON FOR EXAM: Female, 59 years old. Routine annual screening examination. PERTINENT HISTORY: Mother with breast cancer. Aunts with breast cancer. TECHNIQUE: Digital bilateral breast mounika (3D mammographic acquisition) in the CC and MLO projections. 2-D mediolateral oblique (MLO) and craniocaudad (CC) views of both breasts were obtained. CAD: Full Field Digital Mammography with Computer Added Detection was performed. COMPARISON: Comparison is made with prior study dated August 22, 2023 and August 11, 2022. FINDINGS: Breast Composition: The breasts are heterogeneously dense, which may obscure small masses. There are no dominant masses or suspicious calcifications. No other significant abnormalities are identified. There has been no significant change since the prior study. BI/SCRN MAMM (CAD)W/MOUNIKA BILAT IMPRESSION: Stable bilateral screening mammogram. Yearly follow-up mammogram recommended. (A) ASSESSMENT CATEGORY: BIRADS Category 1: Negative. A letter regarding these results will be sent to the patient by the facility within 30 days. Approximately 10% of breast cancers are not detected by mammography. A normal mammogram should not delay biopsy of a clinically suspicious abnormality. [id number] Electronically Signed: Beck Qiu MD at 14:06 EST , CC: Dr. Francisco Eddy, Environmental Science Instructor: Signed Normal [facility] CBC, Employeeon 05-03-2024 Absolute Lymph 2.01 X10 3/uL Normal 0.83-4.51 [facility] Comment on above: Performed By: #### L 500.2900, L400.0100, L100.0200 #### [facility] Laboratory [address] [place], [address] Absolute Neut 3.2 X10 3/uL Normal 2.0-7.7 [facility] Comment on above: Performed By: #### L 500.2900, L400.0100, L100.0200 #### [facility] Laboratory [address] [place], [address] Basophils/100 WBC (Bld) 0.5 % Normal 0-1 [facility] Comment on above: Performed By: #### L 500.2900, L400.0100, L100.0200 #### [facility] Laboratory [address] [place], [address] Eosinophils/100 WBC (Bld) 1.1 % Normal 0-5 [facility] Comment on above: Performed By: #### L 500.2900, L400.0100, L100.0200 #### [facility] Laboratory [address] [place], [address] Erythrocyte distribution width (RBC) [Ratio] 13.7 % Normal 11.6-14.6 [facility] Comment on above: Performed By: #### L 500.2900, L400.0100, L100.0200 #### [facility] Laboratory [address] [place], [address] Hematocrit (Bld) [Volume fraction] 38.6 % Normal 37-47 [facility] Comment on above: Performed By: #### L 500.2900, L400.0100, L100.0200 #### [facility] Laboratory [address] [place], [address] Hemoglobin (Bld) [Mass/Vol] 12.3 g/dL Normal 12.0-15.0 [facility] Comment on above: Performed By: #### L 500.2900, L400.0100, L100.0200 #### [facility] Laboratory [address] [place], [address] Lymphocytes/100 WBC (Bld) 35.8 % Normal 19-41 [facility] Comment on above: Performed By: #### L 500.2900, L400.0100, L100.0200 #### [facility] Laboratory [address] [place], [address] MCH (RBC) [Entitic mass] 28.3 pg Normal 27.0-32.0 [facility] Comment on above: Performed By: #### L 500.2900, L400.0100, L100.0200 #### [facility] Laboratory [address] [place], [address] MCHC (RBC) [Mass/Vol] 31.9 g/dL Low 32-36 [facility] Comment on above: Performed By: #### L 500.2900, L400.0100, L100.0200 #### [facility] Laboratory [address] [place], [address] MCV (RBC) [Entitic vol] 88.7 fL Normal 81-99 [facility] Comment on above: Performed By: #### L 500.2900, L400.0100, L100.0200 #### [facility] Laboratory [address] [place], [address] Monocytes/100 WBC (Bld) 5.7 % Normal 0-10 [facility] Comment on above: Performed By: #### L 500.2900, L400.0100, L100.0200 #### [facility] Laboratory [address] [place], [address] Neutrophils/100 WBC (Bld) 56.5 % Normal 47-70 [facility] Comment on above: Performed By: #### L 500.2900, L400.0100, L100.0200 #### [facility] Laboratory [address] [place], [address] NRBC # 0.00 10 3/uL Normal 0-5 [facility] Comment on above: Performed By: #### L 500.2900, L400.0100, L100.0200 #### [facility] Laboratory [address] [place], [address] Nucleated RBC (Bld) [#/Vol] 0 10*3/uL Normal 0-5 [facility] Comment on above: Performed By: #### L 500.2900, L400.0100, L100.0200 #### [facility] Laboratory [address] [place], [address] Platelet mean volume (Bld) [Entitic vol] 8.2 fL Normal 6.2-12.0 [facility] Comment on above: Performed By: #### L 500.2900, L400.0100, L100.0200 #### [facility] Laboratory [address] [place], [address] Platelets (Bld) [#/Vol] 273 10*3/uL Normal 150-450 [facility] Comment on above: Performed By: #### L 500.2900, L400.0100, L100.0200 #### [facility] Laboratory [address] [place], [address] RBC (Bld) [#/Vol] 4.35 10*6/uL Normal 4.2-5.4 [facility] Comment on above: Performed By: #### L 500.2900, L400.0100, L100.0200 #### [facility] Laboratory [address] [place], [address] RDW SD 44.6 fl High 35.1-43.9 [facility] Comment on above: Performed By: #### L 500.2900, L400.0100, L100.0200 #### [facility] Laboratory [address] [place], [address] WBC (Bld) [#/Vol] 5.6 10*3/uL Normal 4.4-11.0 [facility] Comment on above: Performed By: #### L 500.2900, L400.0100, L100.0200 #### [facility] Laboratory [address] [place], [address] [employer] 4 Albumin [Mass/Vol] 3.7 g/dL Normal 3.2-5.0 [facility] Comment on above: Performed By: #### L 500.2900, L400.0100, L100.0200 #### [facility] [address] [place], [address] Albumin/Globulin [Mass ratio] 1.0 {ratio} Normal 0.9-2.4 [facility] Comment on above: Performed By: #### L 500.2900, L400.0100, L100.0200 #### [facility] [facility] [address] [place], [address] ALK P 108 U/L Normal 45-117 [facility] Comment on above: Performed By: #### L 500.2900, L400.0100, L100.0200 #### [facility] [address] [place], [address] ALT [Catalytic activity/Vol] 31 U/L Normal 13-56 [facility] Comment on above: Performed By: #### L 500.2900, L400.0100, L100.0200 #### [facility] Laboratory [address] [place], [address] AST [Catalytic activity/Vol] 23 U/L Normal 15-37 [facility] Comment on above: Performed By: #### L 500.2900, L400.0100, L100.0200 #### [facility] Laboratory [address] [place], [address] Bilirubin [Mass/Vol] 0.40 mg/dL Normal 0.20-1.00 [facility] Comment on above: Result Comment: For patients on eltrombopag therapy, use of Dimension [place] TBIL is not recommended. Performed By: #### L 500.2900, L400.0100, L100.0200 #### [facility] Laboratory [address] [place], [address] Bilirubin.direct [Mass/Vol] 0.14 mg/dL Normal 0.00-0.30 [facility] Comment on above: Performed By: #### L 500.2900, L400.0100, L100.0200 #### [facility] Laboratory [address] [place], [address] BUN/CRE 16.4 RATIO Normal 10-20 [facility] Comment on above: Performed By: #### L 500.2900, L400.0100, L100.0200 #### [facility] [address] [place], [address] CA,Total 8.5 mg/dL Normal 8.5-10.1 [facility] Comment on above: Performed By: #### L 500.2900, L400.0100, L100.0200 #### [facility] Laboratory [address] [place], [address] Chloride [Moles/Vol] 110 mmol/L High 98-107 [facility] Comment on above: Performed By: #### L 500.2900, L400.0100, L100.0200 #### [facility] [address] [place], [address] CHOL:HDL 1.80 Normal [facility] Comment on above: Performed By: #### L 500.2900, L400.0100, L100.0200 #### [facility] [address] [place], [address] Cholesterol [Mass/Vol] 216 mg/dL High 200 [facility] Comment on above: Result Comment: <200 mg/dL Desirable 200-240 mg/dL Borderline >240 mg/dL High Risk Performed By: #### L 500.2900, L400.0100, L100.0200 #### [facility] [address] [place], [address] Cholesterol in HDL [Mass/Vol] 121 mg/dL Normal [facility] Comment on above: Result Comment: The drugs N-Acetylcysteine and Metamizole may falsely depress this assay. Reference Range HDL <40 mg/dL Low HDL Cholesterol HDL >or= 60 mg/dL High HDL Cholesterol Performed By: #### L 500.2900, L400.0100, L100.0200 #### [facility] [address] [place], [address] Cholesterol in LDL [Mass/Vol] 86 mg/dL Normal 0-130 [facility] Comment on above: Performed By: #### L 500.2900, L400.0100, L100.0200 #### [facility] [address] [place], [address] Cholesterol in VLDL [Mass/Vol] 9 mg/dL Normal 5-40 [facility] Comment on above: Performed By: #### L 500.2900, L400.0100, L100.0200 #### [facility] [address] [place], [address] CO2 [Moles/Vol] 30.0 mmol/L Normal 21.0-32.0 [facility] Comment on above: Performed By: #### L 500.2900, L400.0100, L100.0200 #### [facility] [address] [place], [address] Creatinine [Mass/Vol] 0.73 mg/dL Normal 0.55-1.02 [facility] Comment on above: Result Comment: The validity of the calculated GFR GFRAA in patients over 70 years has not been determined. Clinical correlation is essential. Performed By: #### L 500.2900, L400.0100, L100.0200 #### [facility] [address] [place], [address] EST GFR - AA 106 mL/min Normal >60 [facility] Comment on above: Result Comment: Afri can [place] GFR Calc Performed By: #### L 500.2900, L400.0100, L100.0200 #### [facility] [address] [place], [address] GAP 1 Low 5-15 [facility] Comment on above: Performed By: #### L 500.2900, L400.0100, L100.0200 #### [facility] [address] [place], [address] GFR/1.73 sq M.predicted among non-blacks MDRD (S/P/Bld) [Vol rate/Area] 87 mL/min/{1.73_m2} Normal >60 [facility] Comment on above: Result Comment: Non- GFR Calc Performed By: #### L 500.2900, L400.0100, L100.0200 #### [facility] [address] [place], [address] Globulin (S) [Mass/Vol] 3.6 g/dL Normal 2.2-4.2 [facility] Comment on above: Performed By: #### L 500.2900, L400.0100, L100.0200 #### [facility] [address] [place], [address] Glucose [Mass/Vol] 96 mg/dL Normal 74-106 [facility] Comment on above: Performed By: #### L 500.2900, L400.0100, L100.0200 #### [facility] [address] [place], [address] LDH 172 U/L Normal 84-246 [facility] Comment on above: Performed By: #### L 500.2900, L400.0100, L100.0200 #### [facility] [address] [place], [address] Phosphate [Mass/Vol] 2.2 mg/dL Low 2.5-4.9 [facility] Comment on above: Performed By: #### L 500.2900, L400.0100, L100.0200 #### [facility] [address] [place], [address] Potassium [Moles/Vol] 3.9 mmol/L Normal 3.5-5.1 [facility] Comment on above: Performed By: #### L 500.2900, L400.0100, L100.0200 #### [facility] [address] [place], [address] Sodium [Moles/Vol] 141 mmol/L Normal 136-145 [facility] Comment on above: Performed By: #### L 500.2900, L400.0100, L100.0200 #### [facility] [address] [place], [address] T PROT 7.3 g/dL Normal 6.4-8.2 [facility] Comment on above: Performed By: #### L 500.2900, L400.0100, L100.0200 #### [facility] [address] [place], [address] Triglyceride [Mass/Vol] 46 mg/dL Normal [facility] Comment on above: Result Comment: The drugs N-Acetylcysteine and Metamizole may falsely depress this assay. Serum Triglycerides Reference Interval Normal <150 mg/dL Borderline high 150 - 199 mg/dL High 200 - 499 mg/dL Very High > or = 500 mg/dL Performed By: #### L 500.2900, L400.0100, L100.0200 #### [facility] [address] [place], [address] Urea nitrogen [Mass/Vol] 12 mg/dL Normal 7-18 [facility] Comment on above: Performed By: #### L 500.2900, L400.0100, L100.0200 #### [facility] [address] [place], [address] URIC 4.6 mg/dL Normal 2.6-6.0 [facility] [facility] [place] Comment on above: Result Comment: The drugs N-Acetylcysteine and Metamizole may falsely depress this assay. Performed By: #### L 500.2900, L400.0100, L100.0200 #### [facility] [place] Laboratory [address] [place], [address] Urinalysis, Employeeon 05-03 BILIRUBIN URINE Negative Normal Negative [facility] [place] Comment on above: Performed By: #### L 500.2900, L400.0100, L100.0200 #### [facility] [place] [facility] [address] [place], [address] Clarity (U) Clear Normal Clear [facility] [place] Comment on above: Performed By: #### L 500.2900, L400.0100, L100.0200 #### [facility] [place] [facility] [address] [place], [address] Color (U) Yellow Normal Yellow [facility] [place] Comment on above: Performed By: #### L 500.2900, L400.0100, L100.0200 #### [facility] [place] Laboratory [address] [place], [address] GLUCOSE, UR Normal Normal Normal [facility] [place] Comment on above: Performed By: #### L 500.2900, L400.0100, L100.0200 #### [facility] [place] [facility] [address] [place], [place], [facility] KETONE UR Negative Normal Negative [facility] [place] Comment on above: Performed By: #### L 500.2900, L400.0100, L100.0200 #### [facility] [place] [facility] [address] [place], [address] LEUK ESTERASE Negative Normal Negative [facility] [place] Comment on above: Performed By: #### L 500.2900, L400.0100, L100.0200 #### [facility] [place] Laboratory [address] [place], [address] Nitrite Ql (U) Negative Normal Negative [facility] [place] Comment on above: Performed By: #### L 500.2900, L400.0100, L100.0200 #### [facility] [place] Laboratory [address] [place], [address] OCCULT BLOOD-UR 10 /ul Abnormal Negative [facility] [place] Comment on above: Performed By: #### L 500.2900, L400.0100, L100.0200 #### [facility] [place] Laboratory [address] [place], [address] pH UR 6.0 Normal 5.0 - 8.0 [facility] [place] Comment on above: Performed By: #### L 500.2900, L400.0100, L100.0200 #### [facility] [place] [facility] [address] [place], [address] PROT DIPSTX Negative Normal Negative [facility] [place] Comment on above: Performed By: #### L 500.2900, L400.0100, L100.0200 #### [facility] [place] Laboratory [address] [place], [address] SP.GR. DIPSTX 1.015 Normal 1.002-1.030 [facility] [place] Comment on above: Performed By: #### L 500.2900, L400.0100, L100.0200 #### [facility] [place] Laboratory [address] [place], [address] UROBILI Normal Normal Normal [facility] [place] Comment on above: Performed By: #### L 500.2900, L400.0100, L100.0200 #### [facility] [place] Laboratory [address] [place], [address] Basophil percentageOrdered B y: Hank Cain on 11-19-2023 Chloride [Moles/Vol] 104 mmol/L 98-107 [facility] Glucose [Mass/Vol] 93 mg/dL 74-106 [facility] Potassium [Moles/Vol] 3.7 mmol/L 3.5-5.1 [facility] Sodium [Moles/Vol] 139 mmol/L 136-145 [facility] Laboratory - Chemistry and C hemistry - challengeOrdered By: Hank Cain on 11-19-2023 CO2 [Moles/Vol] 28.0 mmol/L 21.0-32.0 [facility] [place] Urea nitrogen/Creatinine [Mass ratio] 8.5 mg/mg 10-20 [facility] [place] No Panel InformationOrdered By: Hank Cain on 11-19-2023 Estimated GFR (MDRD) Amer 93 mL/min >60 [facility] [place] Comment on above: GFR Calc Estimated GFR (MDRD) Non-Af Amer 77 mL/min >60 [facility] [place] Comment on above: Non- GFR Calc Vitamin D 25-Hydroxy 49.2 ng/mL [facility] Comment on above: Vitamin D 25([place]) Sta tus Range Deficiency <20 ng/mL (50nmol/L) Insufficiency 20 - 30 ng/mL (50 - 75 nmol/L) Sufficiency 30 - 100 ng/mL (75 - 250 nmol/L) Toxicity >100 ng/mL (>250 nmol/L) Serum or plasma calcium dion urement (mass/volume)Ordered By: Hank Cain on 11-19-2023 Calcium [Mass/Vol] 9.3 mg/dL 8.5-10.1 [facility] Serum or plasma creatinine m easurement (mass/volume)Ordered By: Hank Cain on 11-19-2023 Creatinine [Mass/Vol] 0.82 mg/dL 0.55-1.02 [facility] Comment on above: The validity of the calculated GFR & GFRAA in patients over 70 years has not been determined. Clinical correlation is essential. Serum or plasma urea nitroge n measurement (mass/volume)Ordered By: Hank Cain on 11-19-2023 Urea nitrogen [Mass/Vol] 7 mg/dL 7-18 [facility] [place] Thin prep Papanicolaou smear with manual screeningOrdered By: Hank Cain on 11-19-2023 Thin prep Papanicolaou smear with manual screening 7 5-15 [facility] [place] No Panel InformationOrdered By: Hank Cain on 10-30-2023 Parathyroid Hormone (Intact) 33.0 pg/mL 18.4-80.1 [facility] [place] Serum or plasma calcium dion urement (mass/volume)Ordered By: Hank Cain on 10-30-2023 Calcium [Mass/Vol] 9.9 mg/dL 8.5-10.1 [facility] 24 hour urine calcium measur ement (mass/time)Ordered By: Hank Cain on 09-25-2023 Calcium (24H U) [Mass/Time] TNP [facility] [place] Comment on above: Test not performed 24 hour urine specimen volum e measurementOrdered By: Hank Cain on 09-25-2023 Specimen volume (24H U) 2.1 L [facility] Laboratory - Chemistry and C hemistry - challengeOrdered By: Hank Cain on 09-25-2023 pH (U) 2 [pH] [facility] [place] Laboratory - Specimen inform ationOrdered By: Hank Cain on 09-25-2023 Collection time ([place]) [Date/time] 24.0 HR 24.0-24.0 [facility] [place] No Panel InformationOrdered By: Hank Cain on 09-25-2023 Urine Calcium < 5.0 Not Estab. [facility] [place] No Panel InformationOrdered By: Hank Cain on 09-13-2023 Parathyroid Hormone (Intact) 102.8 pg/mL 18.4-80.1 [facility] [place] Thyroid Stimulating Hormone (TSH) 2.37 uIU/mL 0.358-3.74 [facility] [place] Vitamin D 25-Hydroxy 39.2 ng/mL [facility] Comment on above: Vitamin D 25([place]) Sta tus Range Deficiency <20 ng/mL (50nmol/L) Insufficiency 20 - 30 ng/mL (50 - 75 nmol/L) Sufficiency 30 - 100 ng/mL (75 - 250 nmol/L) Toxicity >100 ng/mL (>250 nmol/L) Absolute lymphocyte countOrd ered By: HEALTH ASSESSMENT on 05-10-2023 Lymphocytes Auto (Unsp spec) [#/Vol] 1.66 10*3/uL 0.83-4.51 [facility] [place] Absolute reticulocyte countO rdered By: HEALTH ASSESSMENT on 05-10-2023 Reticulocytes (Bld) [#/Vol] 0.00 10*3/uL 0-5 [facility] [place] Basophil percentageOrdered B y: HEALTH ASSESSMENT on 05-10-2023 Basophil percentage 3.1 mg/dL 2.5-4.9 [facility] Bilirubin [Mass/Vol] 0.50 mg/dL 0.20-1.00 [facility] Comment on above: For patients on eltr ombopag therapy, use of Dimension [place] TBIL is not recommended. Chloride [Moles/Vol] 105 mmol/L 98-107 [facility] Cholesterol [Mass/Vol] 223 mg/dL <200 [facility] Comment on above: <200 mg/dL Desirable 200-240 mg/dL Borderline >240 mg/dL High Risk Glucose [Mass/Vol] 89 mg/dL 74-106 [facility] LDH [Catalytic activity/Vol] 190 U/L 84-246 [facility] [place] Neutrophils (Bld) [#/Vol] 3.5 10*3/uL 2.0-7.7 [facility] [place] Potassium [Moles/Vol] 4.1 mmol/L 3.5-5.1 [facility] Protein [Mass/Vol] 7.6 g/dL 6.4-8.2 [facility] Sodium [Moles/Vol] 139 mmol/L 136-145 [facility] Triglyceride [Mass/Vol] 69 mg/dL <199 [facility] Comment on above: The drugs N-Acetylcy steine and Metamizole may falsely depress this assay.Serum Triglycerides Reference Interval Normal <150 mg/dL Borderline high 150 - 199 mg/dL High 200 - 499 mg/dL Very High > or = 500 mg/dL WBC (Bld) [#/Vol] 5.5 10*3/uL 4.4-11.0 [facility] Bilirubin Test strip Ql (U)O rdered By: HEALTH ASSESSMENT on 05-10-2023 Bilirubin Ql (U) Negative Negative [facility] [place] Blood erythrocytes count (nu mber/volume)Ordered By: HEALTH ASSESSMENT on 05-10-2023 RBC (Bld) [#/Vol] 4.23 10*6/uL 4.2-5.4 [facility] Blood hemoglobin measurement (mass/volume)Ordered By: HEALTH ASSESSMENT on 05-10-2023 Hemoglobin (Bld) [Mass/Vol] 12.2 g/dL 12.0-15.0 [facility] [place] Blood platelet mean volumeOr dered By: HEALTH ASSESSMENT on 05-10-2023 Platelet mean volume (Bld) [Entitic vol] 8.2 fL 6.2-12.0 [facility] [place] Determination of erythrocyte mean corpuscular volume (MCV)Ordered By: HEALTH ASSESSMENT on 05-10-2023 MCV (RBC) [Entitic vol] 92.9 fL 81-99 [facility] Direct bilirubinOrdered By: HEALTH ASSESSMENT on 05-10-2023 Bilirubin.direct [Mass/Vol] 0.14 mg/dL 0.00-0.30 [facility] [place] Hematocrit Auto (Bld) [Volum e fraction]Ordered By: HEALTH ASSESSMENT on 05-10-2023 Hematocrit (Bld) [Volume fraction] 39.3 % 37-47 [facility] [place] Ketones Test strip Ql (U)Ord ered By: HEALTH ASSESSMENT on 05-10-2023 Ketones Ql (U) Negative Negative [facility] [place] Laboratory - Chemistry and C hemistry - challengeOrdered By: HEALTH ASSESSMENT on 05-10-2023 ALP [Catalytic activity/Vol] 125 U/L 45-117 [facility] [place] ALT [Catalytic activity/Vol] 42 U/L 13-56 [facility] [place] Cholesterol.total/Choles terol in HDL [Mass ratio] 1.90 {ratio} [facility] [place] CO2 [Moles/Vol] 30.0 mmol/L 21.0-32.0 [facility] [place] Globulin (S) [Mass/Vol] 3.7 g/dL 2.2-4.2 [facility] Urea nitrogen/Creatinine [Mass ratio] 12.8 mg/mg 10-20 [facility] [place] Laboratory - Hematology and Cell countsOrdered By: HEALTH ASSESSMENT on 05-10-2023 Erythrocyte distribution width (RBC) [Entitic vol] 44.6 fL 35.1-43.9 [facility] [place] Erythrocyte distribution width (RBC) [Ratio] 13.1 % 11.6-14.6 [facility] [place] MCH (RBC) [Entitic mass] 28.8 pg 27.0-32.0 [facility] [place] Nucleated RBC/100 WBC (Bld) [Ratio] 0 % 0-5 [facility] [place] MCHC Auto (RBC) [Mass/Vol]Or dered By: HEALTH ASSESSMENT on 05-10-2023 MCHC (RBC) [Mass/Vol] 31.0 g/dL 32-36 [facility] Nitrite Test strip Ql (U)Ord ered By: HEALTH ASSESSMENT on 05-10-2023 Nitrite Ql (U) Negative Negative [facility] [place] No Panel InformationOrdered By: HEALTH ASSESSMENT on 05-10-2023 Estimated GFR (MDRD) Amer 111 mL/min >60 [facility] [place] Comment on above: GFR Calc Estimated GFR (MDRD) Non-Af Amer 92 mL/min >60 [facility] [place] Comment on above: Non- GFR Calc No Panel InformationOrdered By: Francisco Eddy on 05-10-2023 Vitamin D 25-Hydroxy 28.5 ng/mL [facility] Comment on above: Vitamin D 25([place]) Sta tus Range Deficiency <20 ng/mL (50nmol/L) Insufficiency 20 - 30 ng/mL (50 - 75 nmol/L) Sufficiency 30 - 100 ng/mL (75 - 250 nmol/L) Toxicity >100 ng/mL (>250 nmol/L) Platelets bldOrdered By: [facility] ASSESSMENT on 05-10-2023 Platelets (Bld) [#/Vol] 265 10*3/uL 150-450 [facility] [place] Protein Test strip Ql (U)Ord ered By: HEALTH ASSESSMENT on 05-10-2023 Protein Ql (U) Negative Negative [facility] [place] Segmented neutrophils/100 WB C Auto (Bld)Ordered By: HEALTH ASSESSMENT on 05-10-2023 Segmented neutrophils/100 WBC (Bld) 64.2 % 47-70 [facility] [place] Serum or plasma albumin dion urement (mass/volume)Ordered By: HEALTH ASSESSMENT on 05-10-2023 Albumin [Mass/Vol] 3.9 g/dL 3.2-5.0 [facility] Serum or plasma albumin/glob ulin mass ratioOrdered By: HEALTH ASSESSMENT on 05-10-2023 Albumin/Globulin [Mass ratio] 1.1 {ratio} 0.9-2.4 [facility] [place] Serum or plasma calcium dion urement (mass/volume)Ordered By: HEALTH ASSESSMENT on 05-10-2023 Calcium [Mass/Vol] 9.3 mg/dL 8.5-10.1 [facility] Serum or plasma cholesterol in HDL measurement (mass/volume)Ordered By: HEALTH ASSESSMENT on 05-10-2023 Cholesterol in HDL [Mass/Vol] 119 mg/dL >40 [facility] [place] Comment on above: The drugs N-Acetylcy steine and Metamizole may falsely depress this assay. Reference Range HDL <40 mg/dL Low HDL Cholesterol HDL >or= 60 mg/dL High HDL Cholesterol Serum or plasma cholesterol in VLDL measurement (mass/volume)Ordered By: HEALTH ASSESSMENT on 05-10-2023 Cholesterol in VLDL [Mass/Vol] 14 mg/dL 5-40 [facility] [place] Serum or plasma creatinine m easurement (mass/volume)Ordered By: HEALTH ASSESSMENT on 05-10-2023 Creatinine [Mass/Vol] 0.70 mg/dL 0.55-1.02 [facility] Comment on above: The validity of the calculated GFR & GFRAA in patients over 70 years has not been determined. Clinical correlation is essential. Serum or plasma low density lipoprotein (LDL) cholesterol measurement (mass/volume)Ordered By: HEALTH ASSESSMENT on 05-10-2023 Cholesterol in LDL [Mass/Vol] 90 mg/dL 0-130 [facility] [place] Serum or plasma urea nitroge n measurement (mass/volume)Ordered By: HEALTH ASSESSMENT on 05-10-2023 Urea nitrogen [Mass/Vol] 9 mg/dL 7-18 [facility] [place] Serum or plasma uric acid me asurement (mass/volume)Ordered By: HEALTH ASSESSMENT on 05-10-2023 Urate [Mass/Vol] 4.3 mg/dL 2.6-6.0 [facility] [place] Comment on above: The drugs N-Acetylcy steine and Metamizole may falsely depress this assay. Thin prep Papanicolaou smear with manual screeningOrdered By: HEALTH ASSESSMENT on 05-10-2023 Thin prep Papanicolaou smear with manual screening 25 U/L 15-37 [facility] [place] Thin prep Papanicolaou smear with manual screening 4 5-15 [facility] [place] Urine blood detectionOrdered By: HEALTH ASSESSMENT on 05-10-2023 RBC Ql (U) 10 /ul Negative [facility] [place] Urine clarityOrdered By: A LT ASSESSMENT on 05-10-2023 Clarity (U) Clear Clear [facility] [place] Urine color determinationOrd ered By: HEALTH ASSESSMENT on 05-10-2023 Color (U) Straw Yellow [facility] [place] Urine glucose detectionOrder ed By: HEALTH ASSESSMENT on 05-10-2023 Glucose Ql (U) Normal mg/dl Normal [facility] [place] Urine leukocyte esterase det ection by dipstickOrdered By: HEALTH ASSESSMENT on 05-10-2023 Leukocyte esterase Test strip Ql (U) Negative Negative [facility] [place] Urine pHOrdered By: HEALTH A SSESSMENT on 05-10-2023 pH (U) 7.0 [pH] 5.0 - 8.0 [facility] [place] Urine specific gravity measu rementOrdered By: HEALTH ASSESSMENT on 05-10-2023 Specific gravity (U) [Rel density] 1.010 1.002-1.030 [facility] [place] Urobilinogen Auto test strip Ql (U)Ordered By: HEALTH ASSESSMENT on 05-10-2023 Urobilinogen Ql (U) Normal mg/dl Normal [facility] Culture, urineOrdered By: Esthela Will on 11-10-2022 Bacteria identified Cx Nom (U) Culture exhibits no growth. [facility] [place] Basophil percentageOrdered B y: Franko Will on 11-08-2022 Basophil percentage 5-10 SEEN /hpf 0-5 [facility] Bilirubin Test strip Ql (U)O rdered By: Franko Will on 11-08-2022 Bilirubin Ql (U) Negative Negative [facility] [place] Ketones Test strip Ql (U)Ord ered By: Franko Will on 11-08-2022 Ketones Ql (U) Negative Negative [facility] [place] Mucus LM Ql (Urine sed)Order ed By: Franko Will on 11-08-2022 Mucus Ql (Urine sed) 0 SEEN /hpf [facility] Nitrite Test strip Ql (U)Ord ered By: Franko Will on 11-08-2022 Nitrite Ql (U) Negative Negative [facility] [place] Protein Test strip Ql (U)Ord ered By: Franko Will on 11-08-2022 Protein Ql (U) 15 mg/dl Negative [facility] [place] Squamous epithelial cells de tection in urine sediment by light microscopyOrdered By: Franko Will on 11-08-2022 Epithelial cells.squamous LM Ql (Urine sed) 0-5 SEEN /hpf 5-10 [facility] [place] Urine blood detectionOrdered By: Franko Will on 11-08-2022 RBC Ql (U) 25 /ul Negative [facility] [place] RBC Ql (U) 0 SEEN /hpf 0-5 [facility] [place] Urine clarityOrdered By: Jay Jay Will on 11-08-2022 Clarity (U) Sl. Cloudy Clear [facility] [place] Urine color determinationOrd ered By: Franko Will on 11-08-2022 Color (U) Yellow Yellow [facility] [place] Urine glucose detectionOrder ed By: Franko Will on 11-08-2022 Glucose Ql (U) Normal mg/dl Normal [facility] [place] Urine leukocyte esterase det ection by dipstickOrdered By: Franko Will on 11-08-2022 Leukocyte esterase Test strip Ql (U) 500 /ul Negative [facility] [place] Urine pHOrdered By: Franko morgan on 11-08-2022 pH (U) 6.5 [pH] 5.0 - 8.0 [facility] [place] Urine sediment bacteria coun t by microscopy (number/high power field)Ordered By: Franko Will on 11-08-2022 Bacteria LM.HPF (Urine sed) [#/Area] RARE /hpf None Seen [facility] [place] Urine specific gravity measu rementOrdered By: Franko Will on 11-08-2022 Specific gravity (U) [Rel density] 1.010 1.002-1.030 [facility] [place] Urobilinogen Auto test strip Ql (U)Ordered By: rFanko Will on 11-08-2022 Urobilinogen Ql (U) Normal mg/dl Normal [facility] Laboratory - Chemistry and C hemistry - challengeon 11-07-2022 Bilirubin Ql (U) Negative [facility] [place] Glucose Ql (U) Negative [facility] [place] Ketones Ql (U) Negative [facility] [place] pH (U) 5.0 [pH] [facility] [place] Specific gravity (U) [Rel density] 1.005 [facility] [place] Urobilinogen (U) [Mass/Vol] 0.8745574 mg/dL [facility] [place] Laboratory - Hematology and Cell countson 11-07-2022 Hemoglobin Ql (U) Moderate [facility] [place] Laboratory - Specimen inform ationon 11-07-2022 Clarity (U) Clear [facility] [place] Color (U) Yellow [facility] [place] Laboratory - Urinalysison Nitrite Ql (U) Negative [facility] [place] Protein Ql (U) Negative [facility] [place] No Panel Informationon 11-07 Urine Leukocytes Positive [facility] [place] Urine Non-Hemolyzed Blood Negative [facility] [place] Absolute lymphocyte counton 05-08-2022 Lymphocytes Auto (Unsp spec) [#/Vol] 1.49 10*3/uL 0.83-4.51 [facility] [place] Work Phone: Absolute reticulocyte counto n 05-08-2022 Reticulocytes (Bld) [#/Vol] 0.00 10*3/uL 0-5 [facility] [place] Work Phone: Basophil percentageon 2021 Basophil percentage 2.9 mg/dL 2.5-4.9 [facility] Work Phone: [phone] Bilirubin [Mass/Vol] 0.40 mg/dL 0.20-1.00 [facility] Work Phone: [phone] Comment on above: For patients on eltr ombopag therapy, use of Dimension [place] TBIL is not recommended. Chloride [Moles/Vol] 104 mmol/L 98-107 [facility] Work Phone: Cholesterol [Mass/Vol] 210 mg/dL <200 [facility] Work Phone: [phone] Comment on above: <200 mg/dL Desirable 200-240 mg/dL Borderline >240 mg/dL High Risk Glucose [Mass/Vol] 91 mg/dL 74-106 [facility] Work Phone: Neutrophils (Bld) [#/Vol] 3.1 10*3/uL 2.0-7.7 [facility] [place] Work Phone: [phone] Potassium [Moles/Vol] 4.1 mmol/L 3.5-5.1 [facility] Work Phone: [phone] Protein [Mass/Vol] 7.5 g/dL 6.4-8.2 [facility] Work Phone: [phone] Sodium [Moles/Vol] 140 mmol/L 136-145 [facility] Work Phone: [phone] Triglyceride [Mass/Vol] 56 mg/dL <199 [facility] Work Phone: [phone] Comment on above: The drugs N-Acetylcy steine and Metamizole may falsely depress this assay.Serum Triglycerides Reference Interval Normal <150 mg/dL Borderline high 150 - 199 mg/dL High 200 - 499 mg/dL Very High > or = 500 mg/dL WBC (Bld) [#/Vol] 5.0 10*3/uL 4.4-11.0 [facility] Work Phone: Bilirubin Test strip Ql (U)o n 05-08-2022 Bilirubin Ql (U) Negative Negative [facility] [place] Work Phone: [phone] Blood erythrocytes count (nu mber/volume)on 05-08-2022 RBC (Bld) [#/Vol] 4.41 10*6/uL 4.2-5.4 [facility] Work Phone: [phone] Blood hemoglobin measurement (mass/volume)on 05-08-2022 Hemoglobin (Bld) [Mass/Vol] 12.6 g/dL 12.0-15.0 [facility] [place] Work Phone: [phone] Blood platelet mean volumeon 05-08-2022 Platelet mean volume (Bld) [Entitic vol] 8.4 fL 6.2-12.0 [facility] [place] Work Phone: [phone] Determination of erythrocyte mean corpuscular volume (MCV)on 05-08-2022 MCV (RBC) [Entitic vol] 90.2 fL 81-99 [facility] Work Phone: [phone] Direct bilirubinon Bilirubin.direct [Mass/Vol] 0.15 mg/dL 0.00-0.30 [facility] [place] Work Phone: [phone] Hematocrit Auto (Bld) [Volum e fraction]on 05-08-2022 Hematocrit (Bld) [Volume fraction] 39.8 % 37-47 [facility] [place] Work Phone: [phone] Ketones Test strip Ql (U)on 05-08-2022 Ketones Ql (U) Negative Negative [facility] [place] Work Phone: [phone] Laboratory - Chemistry and C hemistry - challengeon 05-08-2022 ALP [Catalytic activity/Vol] 138 U/L 45-117 [facility] [place] Work Phone: ALT [Catalytic activity/Vol] 34 U/L 13-56 [facility] [place] Work Phone: [phone] Cholesterol.total/Choles terol in HDL [Mass ratio] 1.90 {ratio} [facility] [place] Work Phone: [phone] CO2 [Moles/Vol] 31.0 mmol/L 21.0-32.0 [facility] [place] Work Phone: [phone] Globulin (S) [Mass/Vol] 3.9 g/dL 2.2-4.2 [facility] Work Phone: [phone] Urea nitrogen/Creatinine [Mass ratio] 18.8 mg/mg 10-20 [facility] [place] Work Phone: [phone] Laboratory - Hematology and Cell countson 05-08-2022 Erythrocyte distribution width (RBC) [Entitic vol] 50.4 fL 35.1-43.9 [facility] [place] Work Phone: [phone] Erythrocyte distribution width (RBC) [Ratio] 15.1 % 11.6-14.6 [facility] [place] Work Phone: [phone] MCH (RBC) [Entitic mass] 28.6 pg 27.0-32.0 [facility] [place] Work Phone: [phone] Nucleated RBC/100 WBC (Bld) [Ratio] 0 % 0-5 [facility] [place] Work Phone: [phone] MCHC Auto (RBC) [Mass/Vol]on 05-08-2022 MCHC (RBC) [Mass/Vol] 31.7 g/dL 32-36 [facility] Work Phone: [phone] Nitrite Test strip Ql (U)on 05-08-2022 Nitrite Ql (U) Negative Negative [facility] [place] Work Phone: [phone] Panel Informationon 05-08 Estimated GFR (MDRD) Amer 113 mL/min >60 [facility] [place] Work Phone: [phone] Comment on above: GFR Calc Estimated GFR (MDRD) Non-Af Amer 94 mL/min >60 [facility] [place] Work Phone: [phone] Comment on above: Non- GFR Calc Platelets bldon 05-08-2022 Platelets (Bld) [#/Vol] 305 10*3/uL 150-450 [facility] [place] Work Phone: Protein Test strip Ql (U)on 05-08-2022 Protein Ql (U) Negative Negative [facility] [place] Work Phone: Segmented neutrophils/100 WB C Auto (Bld)on 05-08-2022 Segmented neutrophils/100 WBC (Bld) 61.3 % 47-70 [facility] [place] Work Phone: Serum or plasma albumin dion urement (mass/volume)on 05-08-2022 Albumin [Mass/Vol] 3.6 g/dL 3.2-5.0 [facility] Work Phone: Serum or plasma albumin/glob ulin mass ratioon 05-08-2022 Albumin/Globulin [Mass ratio] 0.9 {ratio} 0.9-2.4 [facility] [place] Work Phone: Serum or plasma calcium dion urement (mass/volume)on 05-08-2022 Calcium [Mass/Vol] 9.2 mg/dL 8.5-10.1 [facility] Work Phone: Serum or plasma cholesterol in HDL measurement (mass/volume)on 05-08-2022 Cholesterol in HDL [Mass/Vol] 108 mg/dL >40 [facility] [place] Work Phone: Comment on above: The drugs N-Acetylcy steine and Metamizole may falsely depress this assay. Reference Range HDL <40 mg/dL Low HDL Cholesterol HDL >or= 60 mg/dL High HDL Cholesterol Serum or plasma cholesterol in VLDL measurement (mass/volume)on 05-08-2022 Cholesterol in VLDL [Mass/Vol] 11 mg/dL 5-40 [facility] [place] Work Phone: Serum or plasma creatinine m easurement (mass/volume)on 05-08-2022 Creatinine [Mass/Vol] 0.69 mg/dL 0.55-1.02 [facility] Work Phone: Comment on above: The validity of the calculated GFR & GFRAA in patients over 70 years has not been determined. Clinical correlation is essential. Serum or plasma low density lipoprotein (LDL) cholesterol measurement (mass/volume)on 05-08-2022 Cholesterol in LDL [Mass/Vol] 91 mg/dL 0-130 [facility] [place] Work Phone: Serum or plasma urea nitroge n measurement (mass/volume)on 05-08-2022 Urea nitrogen [Mass/Vol] 13 mg/dL 7-18 [facility] [place] Work Phone: [phone] Serum or plasma uric acid me asurement (mass/volume)on 05-08-2022 Urate [Mass/Vol] 4.0 mg/dL 2.6-6.0 [facility] [place] Work Phone: Comment on above: The drugs N-Acetylcy steine and Metamizole may falsely depress this assay. Thin prep Papanicolaou smear with manual screeningon 05-08-2022 Thin prep Papanicolaou smear with manual screening 29 U/L 15-37 [facility] [place] Work Phone: [phone] Thin prep Papanicolaou smear with manual screening 5 5-15 [facility] [place] Work Phone: Thin prep Papanicolaou smear with manual screening 177 U/L 84-246 [facility] [place] Work Phone: Urine blood detectionon 04-24 RBC Ql (U) Negative Negative [facility] [place] Work Phone: Urine clarityon 05-08-2022 Clarity (U) Clear Clear [facility] [place] Work Phone: Urine color determinationon 05-08-2022 Color (U) Straw Yellow [facility] [place] Work Phone: Urine glucose detectionon Glucose Ql (U) Normal mg/dl Normal [facility] [place] Work Phone: Urine leukocyte esterase det ection by dipstickon 05-08-2022 Leukocyte esterase Test strip Ql (U) Negative Negative [facility] [place] Work Phone: [phone] Urine pHon 05-08-2022 pH (U) 8.0 [pH] 5.0 - 8.0 [facility] [place] Work Phone: Urine specific gravity measu rementon 05-08-2022 Specific gravity (U) [Rel density] 1.010 1.002-1.030 [facility] [place] Work Phone: Urobilinogen Auto test strip Ql (U)on 05-08-2022 Urobilinogen Ql (U) Normal mg/dl Normal [facility] Work Phone: PROGRESSon 10-23-2019 PROGRESS HNO ID: [id number] Author: Renu Downs Service: ? Author Type: Assistant Manager Of Operations Type: Progress Notes Filed: 10/23/2019 2:37 PM Note Text: [facility] INSPECTOR [employer] FRAMES QUICKNOTE Provider Action/FYI: Unable to contact patient. Letters mailed to patient. Patient identified by name and . Renu Downs CMA [facility] PROGRESSon 10-21-2019 PROGRESS HNO ID: [id number] Author: Renu Downs Service: ? Author Type: Assistant Manager Of Operations Type: Progress Notes Filed: 10/23/2019 2:37 PM Note Text: [facility] INSPECTOR [employer] QUICKNOTE Provider Action/FYI: Kylie left me a voicemail asking for a call back. I called back and left another message for patient to return my call. Patient identified by name and . Renu Downs CMA [facility] PROGRESSon 10-20-2019 PROGRESS HNO ID: [id number] Author: Renu Downs Service: ? Author Type: Assistant Manager Of Operations Type: Progress Notes Filed: 10/23/2019 2:37 PM Note Text: [facility] INSPECTOR [employer] QUICKNOTE Provider Action/FYI: 2nd attempt - Left message for patient to return call #[phone] Patient identified by name and . Renu Downs CMA [facility] PROGRESSon 10-16-2019 PROGRESS HNO ID: [id number] Author: Renu Downs Service: ? Author Type: Assistant Manager Of Operations Type: Progress Notes Filed: 10/23/2019 2:37 PM Note Text: [facility] INSPECTOR [employer] QUICKNOTE Provider Action/FYI: 1st attempt - Left message for patient to return call #[phone] Patient identified by name and . Renu Downs CMA [facility]INT[facility] ZACKKYLIE ([id number]) 1965 F Date Time Provider Department [facility]/14[facility] During your visit today, we recorded the following information about you: Renu Downs CMA 10/23/2019 2:37 PM Signed [facility] CARE GAP REGISTRY DOCUMENTATION (OUTSIDE TEAMLET) Provider Action/FYI: PSR Action/FYI: Last patient activity 03/18/2018 Last PCP visit 07/19/2016 I will call patient to verify PCP/schedule re-establish appointment (if patient agreeable). Health Maintenance Due: MAMMOGRAM due on 2017 SHINGRIX VACCINE(1 of 2) due on 2017 DIABETES SCREEN due on 03/24/2018 INFLUENZA(1) due on 05/25/2019 DTAP,TDAP,TD(2 - Td) due on 06/01/2019 PAP TESTING due on 07/29/2019 HPV TESTING due on 07/29/2019 Patient identified by name and date of . Last BP/Labs: Blood Pressure: Last 3 Encounter BP Readings: Date: BP: 01/23/2018 110/58 07/19/2016 108/80 03/23/2016 92/52 Lipids: No results found for: CHOL No results found for: HDL No results found for: LDL No results found for: TG HGB A1C: No results found for: HBA1C TSH: No results found for: TSH) ? Patient has the following care gap registry disease diagnosis: not seen in 3 + years ? Patient has the following open care gaps: Health Maintenance Due: MAMMOGRAM due on 2017 SHINGRIX VACCINE(1 of 2) due on 2017 DIABETES SCREEN due on 03/24/2018 INFLUENZA(1) due on 05/25/2019 DTAP,TDAP,TD(2 - Td) due on 06/01/2019 PAP TESTING due on 07/29/2019 HPV TESTING due on 07/29/2019 ? Last office visit: 07/19/2016 ? Future office visit: re-establish care/verify pcp ALY Mayfield, [facility] 10/23/2019 2:37 PM Signed [facility] ASSISTANT ESTELA Provider Action/FYI: 1st attempt - Left message for patient to return call #[phone] Patient identified by name and . ALY Mayfield [facility] 10/23/2019 2:37 PM Signed [facility] INS[facility] [employer] ESTELA Provider Action/FYI: 2nd attempt - Left message for patient to return call #[phone] Patient identified by name and . ALY Mayfield [facility] 10/23/2019 2:37 PM Signed [facility] ESTELA Provider Action/FYI: Kylie left me a voicemail asking for a call back. I called back and left another message for patient to return my call. Patient identified by name and . ALY Mayfield [facility] 10/23/2019 2:37 PM Signed [facility] ESTELA Provider Action/FYI: Unable to contact patient. Letters mailed to patient. Patient identified by name and . Renu Downs CMA Allergies As of Date: 10/14/2019 (No Known Allergies) Date Reviewed: 01/23/2018 Reviewed by: Hong Bingham - Fully Assessed Reason for Visit: MA/Care Gap Outreach [[id number]] Prescriptions as of 10/14/2019 Sig: CYCLOSPORINE 0.05 % EYE DROPS* Use 1 Drop in both eyes twice* HYDROXYCHLOROQUINE 200 MG TAB* Take 2 tablets by mouth once * IBUPROFEN 800 MG TABLET Take 1 tablet by mouth every * Patient not taking: Reported on 01/23/2018 Problem List As Of Date 10/14/2019 Noted Resolved Muscle strains and tendinitis [T14.8XXA] 04/17/2007 03/29/2011 More... Swollen and painful right index finger PIP join*06/15/2007 03/29/2011 More... CERVICAL DISC DEGEN [M50.30] 09/26/2007 Pneumonia [J18.9] 10/31/2010 03/29/2011 More... History of melanoma excision [Z98.890, Z85.820] 04/08/2012 More... Anemia [D64.9] 04/02/2013 Vitamin D deficiency [E55.9] 03/01/2015 Long-term use of Plaquenil [Z79.899] 09/27/2015 Letter Text Letter Text Encounter Status:Closed by RENU DOWNS CMA on 10/23/19 [facility] PROGRESSon 10-14-2019 PROGRESS HNO ID: [id number] Author: Renu Downs Service: ? Author Type: Assistant Manager Of Operations Type: Progress Notes Filed: 10/23/2019 2:37 PM Note Text: [facility] CARE GAP REGISTRY DOCUMENTATION (OUTSIDE TEAMLET) Provider Action/FYI: PSR Action/FYI: Last patient activity 03/18/2018 Last PCP visit 07/19/2016 I will call patient to verify PCP/schedule re-establish appointment (if patient agreeable). Health Maintenance Due: MAMMOGRAM due on 2017 SHINGRIX VACCINE(1 of 2) due on 2017 DIABETES SCREEN due on 03/24/2018 INFLUENZA(1) due on 05/25/2019 DTAP,TDAP,TD(2 - Td) due on 06/01/2019 PAP TESTING due on 07/29/2019 HPV TESTING due on 07/29/2019 Patient identified by name and date of . Last BP/Labs: Blood Pressure: Last 3 Encounter BP Readings: Date: BP: 01/23/2018 110/58 07/19/2016 108/80 03/23/2016 92/52 Lipids: No results found for: CHOL No results found for: HDL No results found for: LDL No results found for: TG HGB A1C: No results found for: HBA1C TSH: No results found for: TSH) ? Patient has the following care gap registry disease diagnosis: not seen in 3 + years ? Patient has the following open care gaps: Health Maintenance Due: MAMMOGRAM due on 2017 SHINGRIX VACCINE(1 of 2) due on 2017 DIABETES SCREEN due on 03/24/2018 INFLUENZA(1) due on 05/25/2019 DTAP,TDAP,TD(2 - Td) due on 06/01/2019 PAP TESTING due on 07/29/2019 HPV TESTING due on 07/29/2019 ? Last office visit: 07/19/2016 ? Future office visit: re-establish care/verify pcp Renu Downs CMA [facility] Vital Signs Date Time Vital Sign Value Performing Clinician Faci lity 12-19-2024 12:52-0400 Body height 162.[address] Francisco Eddy DO Work Phone: [facility] [place] 12-19-2024 12:52-0400 Body temperature 96.1 [degF] Dr. Francisco Eddy DO Work Phone: [facility] [place] 12-19-2024 12:52-0400 Diastolic blood pressure 73 mm[Hg] Dr. Francisco Eddy DO Work Phone: [facility] [place] 12-19-2024 12:52-0400 Heart rate 68 /min Dr. Francisco Eddy DO Work Phone: [facility] [place] 12-19-2024 12:52-0400 Respiratory rate 16 /min Dr. Francisco Eddy DO Work Phone: [facility] [place] 12-19-2024 12:52-0400 SaO2% (BldA) [Mass fraction] 100 % Dr. Francisco Eddy DO Work Phone: [facility] [place] 12-19-2024 12:52-0400 Systolic blood pressure 137 mm[Hg] Dr. Francisco Eddy DO Work Phone: [facility] [place] 12-27-2023 08:54-0400 Body height 162.[address] Francisco Eddy Work Phone: [facility] [place] 12-27-2023 08:54-0400 Body temperature 96 [degF] Dr. Francisco Eddy Work Phone: [facility] [place] 12-27-2023 08:54-0400 Diastolic blood pressure 63 mm[Hg] Dr. Farncisco Eddy Work Phone: [facility] [place] 12-27-2023 08:54-0400 Heart rate 66 /min Dr. Francisco Eddy Work Phone: [facility] [place] 12-27-2023 08:54-0400 Respiratory rate 16 /min Dr. Francisco Eddy Work Phone: [facility] [place] 12-27-2023 08:54-0400 Systolic blood pressure 118 mm[Hg] Dr. Francisco Eddy Work Phone: [facility] [place] 09-07-2023 09:52-0500 Body height 162.[address] Francisco Eddy Work Phone: [facility] [place] 09-07-2023 09:52-0500 Body mass index (BMI) [Ratio] 25.6 kg/m2 Dr. Francisco Eddy Work Phone: [facility] [place] 09-07-2023 09:52-0500 Body temperature 98.8 [degF] Dr. Francisco Eddy Work Phone: [facility] [place] 09-07-2023 09:52-0500 Body weight 67.[address] Francisco Eddy Work Phone: [facility] [place] 09-07-2023 09:52-0500 Diastolic blood pressure 72 mm[Hg] Dr. Francisco Eddy Work Phone: [facility] [place] 09-07-2023 09:52-0500 Heart rate 78 /min Dr. Francisco Eddy Work Phone: [facility] [place] 09-07-2023 09:52-0500 Respiratory rate 16 /min Dr. Francisco Eddy Work Phone: [facility] [place] 09-07-2023 09:52-0500 SaO2% (BldA) [Mass fraction] 97 % Dr. Francisco Eddy Work Phone: [facility] [place] 09-07-2023 09:52-0500 Systolic blood pressure 114 mm[Hg] Dr. Francisco Eddy Work Phone: [facility] [place] 06-21-2023 13:43-0400 Body height 162.[address] Francisco Eddy Work Phone: [facility] [place] 06-21-2023 13:43-0400 Body temperature 96.8 [degF] Dr. Francisco Eddy Work Phone: [facility] [place] 06-21-2023 13:43-0400 Diastolic blood pressure 48 mm[Hg] Dr. Francisco Eddy Work Phone: [facility] [place] 06-21-2023 13:43-0400 Heart rate 70 /min Dr. Francisco Eddy Work Phone: [facility] [place] 06-21-2023 13:43-0400 Respiratory rate 16 /min Dr. Francisco Eddy Work Phone: [facility] [place] 06-21-2023 13:43-0400 SaO2% (BldA) [Mass fraction] 100 % Dr. Francisco Eddy Work Phone: [facility] [place] 06-21-2023 13:43-0400 Systolic blood pressure 115 mm[Hg] Dr. Francisco Eddy Work Phone: [facility] [place] 05-21-2023 12:06-0400 Body height 162.[address] Francisco Eddy Work Phone: [facility] [place] 05-21-2023 12:06-0400 Body mass index (BMI) [Ratio] 25.4 kg/m2 Dr. Francisco Eddy Work Phone: [facility] [place] 05-21-2023 12:06-0400 Body temperature 98.2 [degF] Dr. Francisco Eddy Work Phone: [facility] [place] 05-21-2023 12:06-0400 Body weight 67.[address] Francisco Eddy Work Phone: [facility] [place] 05-21-2023 12:06-0400 Diastolic blood pressure 85 mm[Hg] Dr. Francisco Eddy Work Phone: [facility] [place] 05-21-2023 12:06-0400 Heart rate 88 /min Dr. Francisco Eddy Work Phone: [facility] [place] 05-21-2023 12:06-0400 Respiratory rate 16 /min Dr. Francisco Eddy Work Phone: [facility] [place] 05-21-2023 12:06-0400 SaO2% (BldA) [Mass fraction] 97 % Dr. Francisco Eddy Work Phone: [facility] [place] 05-21-2023 12:06-0400 Systolic blood pressure 132 mm[Hg] Dr. Francisco Eddy Work Phone: [facility] [place] 11-07-2022 17:01-0500 Body temperature 97.8 [degF] Dr. Francisco Eddy Work Phone: [facility] [place] 11-07-2022 17:01-0500 Diastolic blood pressure 78 mm[Hg] Dr. Francisco Eddy Work Phone: [facility] [place] 11-07-2022 17:01-0500 Heart rate 88 /min Dr. Francisco Eddy Work Phone: [facility] [place] 11-07-2022 17:01-0500 Respiratory rate 18 /min Dr. Francisco Eddy Work Phone: [facility] [place] 11-07-2022 17:01-0500 SaO2% (BldA) [Mass fraction] 97 % Dr. Francisco Eddy Work Phone: [facility] [place] 11-07-2022 17:01-0500 Systolic blood pressure 120 mm[Hg] Dr. Francisco Eddy Work Phone: [facility] [place] 08-07-2022 15:22-0500 Body height 162.[address] [facility] 08-07-2022 15:22-0500 Body weight 66.[address] [facility] 07-20-2022 17:13-0400 Body weight 66.[address] [facility] 06-24-2022 01:41-0400 Body weight 66.[address] [facility] Work Phone: 06-12-2022 15:53-0400 Body height 162.[address] [facility] Work Phone: 06-12-2022 15:53-0400 Body weight 66.[address] [facility] Work Phone: 05-18-2022 15:47-0400 Body height 162.[address] [facility] Work Phone: 05-18-2022 15:47-0400 Body weight 67.[address] [facility] Work Phone: Encounters Encounter Date Encounter Type Care Provider Facility Start: 12-19-2024 End: 12-19-[address] Francisco Eddy DO -Medical Out Work Phone: Start: 12-19-2024 End: 12-19-[address] Francisco Eddy DO Work Phone: [facility] [place] Work Phone: Start: 10-14-2024 End: 10-14-[address] Francisco Eddy DO -Radiology, [place] Work Phone: Start: 10-14-2024 End: 10-14-2024 ambulatory Francisco Eddy Facility:[facility] [place] Start: 09-08-2024 ambulatory [facility] Facility:[facility] Start: 08-25-2024 End: 08-25-[address] Francisco Eddy DO -Outpatient Breast Imaging Work Phone: Start: 08-25-2024 End: 08-25-2024 ambulatory Francisco Eddy Facility:[facility] [place] Start: 06-20-2024 End: 06-20-2024 ambulatory Francisco Eddy Facility:[facility] [place] Start: 05-03-2024 ambulatory Health Risk Assessment Facility:[facility] [place] Start: 12-27-2023 End: 12-27-[address] Francisco Eddy Work Phone: [facility] [place]-Medical Out Work Phone: Start: 12-27-2023 End: 12-27-[address] Francisco Eddy Work Phone: [facility] [place] Work Phone: Start: 11-19-2023 End: 11-19-[address] Francisco Eddy Work Phone: [facility] [place] Work Phone: Start: 11-19-2023 End: 11-19-[address] Francisco Eddy Work Phone: [facility] Work Phone: Start: 10-30-2023 End: 10-30-[address] Francisco Eddy Work Phone: [facility] [place] Work Phone: Start: 10-30-2023 End: 10-30-[address] Francisco Eddy Work Phone: [facility] Work Phone: Start: 09-25-2023 End: 09-25-[address] Francisco Eddy Work Phone: [facility] [facility] [place] Work Phone: Start: 09-25-2023 End: 09-25-[address] Francisco Eddy Work Phone: [facility] Work Phone: Start: 09-13-2023 End: 09-13-[address] Francisco Eddy Work Phone: [facility] Work Phone: Start: 09-07-2023 End: 09-07-[address] Francisco Eddy Work Phone: [facility] Work Phone: Start: 08-22-2023 End: 08-22-[address] Francisco Eddy Work Phone: [facility] [place] Work Phone: Start: 08-22-2023 End: 08-22-[address] Francisco Eddy Work Phone: [facility] [place]-Outpatient Breast Imaging Work Phone: Start: 06-21-2023 End: 06-21-[address] Francisco Eddy Work Phone: [facility] [place] Work Phone: Start: 06-21-2023 End: 06-21-[address] Francisco Eddy Work Phone: [facility] [place]-Medical Out Work Phone: Start: 05-24-2023 End: 05-24-[address] Francisco Eddy Work Phone: [facility] [place] Work Phone: Start: 05-24-2023 End: 05-24-[address] Francisco Eddy Work Phone: [facility] [place]-Outpatient Bone Densitometry Work Phone: Start: 05-21-2023 End: 05-21-[address] Francisco Eddy Work Phone: [facility] Work Phone: Start: 05-10-2023 End: 05-10-2023 ambulatory [facility] [place] Work Phone: Start: 05-10-2023 End: 05-10-2023 Patient encounter procedure [facility] [place]-Laboratory Work Phone: Start: 05-10-2023 Registered Referred [facility] Start: 11-08-2022 End: 11-08-[address] Francisco Eddy Work Phone: [facility] [place] Work Phone: Start: 11-08-2022 End: 11-08-[address] Francisco Eddy Work Phone: [facility] [place]-Laboratory, Specimen Start: 11-07-2022 End: 11-07-[address] Francisco Eddy Work Phone: [facility] [place] Start: 08-11-2022 End: 08-11-2022 ambulatory [facility] [place] Work Phone: Start: 08-11-2022 End: 08-11-2022 Patient encounter procedure [facility] [place]-Outpatient Breast Imaging Start: 08-07-2022 End: 08-23-2022 ambulatory [facility] [place] Work Phone: Start: 08-07-2022 End: 08-23-2022 Discharged Recurring [facility] [place]-Nutritional Services Start: 08-07-2022 Registered Recurring [facility] Start: 07-20-2022 End: 07-24-2022 ambulatory [facility] [place] Work Phone: Start: 07-20-2022 End: 07-24-2022 Discharged Recurring [facility] [place]-Nutritional Services Start: 06-12-2022 End: 06-23-2022 ambulatory [facility] [place] Work Phone: Start: 06-12-2022 End: 06-23-2022 Discharged Recurring [facility] [place]-Nutritional Services Start: 05-18-2022 End: 05-24-2022 ambulatory [facility] [place] Work Phone: Start: 05-18-2022 End: 05-24-2022 Discharged Recurring [facility] [place]-Nutritional Services Start: 05-08-2022 Registered Referred [facility] [place] Start: 12-26-2021 End: 12-26-2021 Patient encounter procedure [facility] [place]-Laboratory, Specimen Procedures Date Procedure Procedure Detail Performing Clinician Start: 10-14-2024 X-ray of foot, three or more views Dr. Francisco Eddy DO Work Phone: Start: 08-25-2024 Screening mammography Raymond Eddy DO Work Phone: Start: 08-22-2023 Screening mammography Raymond Eddy Work Phone: Start: 05-24-2023 Dual energy X-ray absorptiometry Dr. Francisco Eddy Work Phone: Start: 08-11-2022 Screening mammography Urine culture Dr. Francisco hartman Work Phone: Plan of Treatment Date Care Activity Detail Author Start: 05-24-2023 Dual energy X-ray absorptiometry Dexa Bone Density Study [facility] [place] Start: 05-24-2023 DXA Bone [Mass/Area] Bone density [facility] [place] Immunizations Immunization Date Immunization Notes Care Provider Fa cility 07-01-2021 influenza, injectabl e, quadrivalent, preservative free Dr. Francisco Eddy Work Phone: [facility] [place] 07-01-2021 influenza, seasonal, injectable [facility] [place] 06-30-2020 influenza, injectabl e, quadrivalent, preservative free Dr. Francisco Eddy Work Phone: [facility] [place] 06-30-2020 influenza, seasonal, injectable [facility] [place] 07-09-2019 influenza, injectabl e, quadrivalent, preservative free Dr. Francisco Eddy Work Phone: [facility] [place] 07-09-2019 influenza, seasonal, injectable [facility] [place] 06-19-2018 influenza, injectabl e, quadrivalent, preservative free Dr. Francisco Eddy Work Phone: [facility] [place] 06-19-2018 influenza, seasonal, injectable [facility] [place] 07-18-2017 influenza, injectabl e, quadrivalent, preservative free Dr. Francisco Eddy Work Phone: [facility] [place] 07-18-2017 influenza, seasonal, injectable [facility] [place] 06-22-2016 influenza, injectabl e, quadrivalent, preservative free Dr. Francisco Eddy Work Phone: [facility] [place] 06-22-2016 influenza, seasonal, injectable [facility] [place] 06-10-2015 influenza, injectabl e, quadrivalent, preservative free Dr. Francisco Eddy Work Phone: [facility] [place] 06-10-2015 influenza, seasonal, injectable [facility] [place] 06-17-2014 influenza, injectabl e, quadrivalent, preservative free Dr. Francisco Eddy Work Phone: [facility] [place] 06-17-2014 influenza, seasonal, injectable [facility] [place] Payers Date Payer Category Payer Self-pay [id number] 2023 Unknown [id number] 2015 Unknown [id number] Unknown [id number] [id number] Unknown [id number] [id number] Unknown [id number] [id number] [id number] Unknown [id number] 2.16.8 [id number] Unknown [id number] 2.16.8 [id number] Unknown [id number] 2.16.8 [id number] Unknown [id number] 2.16.8 [id number] Social History Date Type Detail Facility Start: 03-14-2018 End: 08-09-2023 Tobacco smoking status NHIS Unknown if ever smoked [facility] [place] Start: 1965 Sex Assigned At Female [facility] Start: 08-09-2023 Tobacco smoking stat us MDIS Never smoked tobacco (finding) [facility] [place] Start: 12-20-2024 Sex Female (finding) [facility] Mental Status Date Assessment Result Facility 12-19-2024 Cognitive function Awake;Alert;A ppropriate;Fol lows Commands [facility] [place] Work Phone: 12-27-2023 Cognitive function Awake;Alert;A ppropriate;Fol lows Commands [facility] [place] Work Phone: 06-21-2023 Cognitive function Voice/Name [facility] Work Phone: Evaluation note Note Date & Type Note Facility Evaluation note No assessment information availa ble [facility] [place] Work Phone: Evaluation note Note Date & Type Note Facility Evaluation note Diagnosis Onset Date Cystitis acute [facility] [place] Work Phone: Evaluation note Note Date & Type Note Facility Evaluation note Diagnosis Onset Date Impacted cerumen, right ear acute URI (upper respiratory infection) acute [facility] [place] Work Phone: Evaluation note Note Date & Type Note Facility Evaluation note Diagnosis Onset Date Corticosteroid-induced osteoporosis chronic Osteoporosis noneactive [facility] [place] Work Phone: Reason for referral (narrative) Note Date & Type Note Facility Reason for referral (narrative) No reason for referral information available [facility] [place] Work Phone: Summary Purpose Family History No Family History Records Found Relationship Condition Age at Onset Recorded Date/T juan pablo father Alcohol abuse Unknown Malignant neoplasm Unknown Diabetes mellitus Unknown sister Lupus Unknown Seizure Unknown mother Malignant neoplasm of breast Unknown Hypertension Unknown Hypercholesterolemia Unknown Osteoporosis Unknown Advance Directives No Advanced Directives Records Found Advance Directive Response Recorded Date/ Time Advance Directives No October 16, 2014 11:04am Living Will No March 14, 2018 12:48pm Power of [place] Hand No March 14 8 12:48pm Advance Directive Response Recorded Date/ Time Advance Directives No October 16, 2014 10:04am Living Will No March 14, 2018 11:48am Power of [place] Hand No March 14 8 11:48am Advance Directive Response Recorded Date/ Time Living Will No March 14, 2018 12:48pm Do you have a Healthcare Power of [place] Hand? No March 14, 2018 12:48pm Advance Directives No October 16, 2014 11:04am Chief Complaint and Reason for Visit Chief Complaint EMPLOYEE LABS OVERWEIGHT Chief Complaint EMPLOYEE LABS OVERWEIGHT OVERWEIGHT Chief Complaint EMPLOYEE LABS OVERWEIGHT OVERWEIGHT OVERWEIGHT Chief Complaint EMPLOYEE LABS OVERWEIGHT OVERWEIGHT OVERWEIGHT OVERWEIGHT screening Chief Complaint OVERWEIGHT OVERWEIGHT screening CONCERN FOR UTI Reason for Visit Cystitis Chief Complaint EMPLOYEE ANUAL HEALT H SCREENING ADD ON TO LABS ALREADY DRAWN Chief Complaint EMPLOYEE ANUAL HEALT H SCREENING ADD ON TO LABS ALREADY DRAWN BILAT EAR COMPLAINTS SCREENING Reason for Visit Impacted cerumen, ri ght ear URI (upper respiratory infection) Chief Complaint EMPLOYEE ANUAL HEALT H SCREENING ADD ON TO LABS ALREADY DRAWN BILAT EAR COMPLAINTS SCREENING PROLIA Reason for Visit Impacted cerumen, ri ght ear URI (upper respiratory infection) Chief Complaint EMPLOYEE ANUAL HEALT H SCREENING ADD ON TO LABS ALREADY DRAWN BILAT EAR COMPLAINTS SCREENING PROLIA SCREEN Reason for Visit Impacted cerumen, ri ght ear URI (upper respiratory infection) Chief Complaint PROLIA SCREEN Osteoporosis E ORDERS Reason for Visit Corticosteroid-induc ed osteoporosis Osteoporosis Chief Complaint SCREEN Osteoporosis E ORDERS EORDER Reason for Visit Corticosteroid-induc ed osteoporosis Osteoporosis Chief Complaint SCREEN Osteoporosis E ORDERS EORDER EORDER Reason for Visit Corticosteroid-induc ed osteoporosis Osteoporosis Chief Complaint Osteoporosis E ORDERS EORDER EORDER PROLIA Reason for Visit Corticosteroid-induc ed osteoporosis Osteoporosis Chief Complaint Admit Date SCREENING August 25, 2024 1 0:09am LEFT FOOT October 14, 2024 1 1:37am PROLIA December 19, 2024 12: 28pm Additional Source Comments INFORMATION SOURCE (unrecogn ized section and content) DATE CREATED AUTHOR 10/23/2019 [facility] DATE CREATED AUTHOR AUTHOR'S ORGANIZ ATION 12/24/[address] [facility] Goals (unrecognized section and content) Goals may be documented in a n alternate sectionGoals may be documented in an alternate sectionGoals may be documented in an alternate sectionGoals may be documented in an alternate sectionGoals may be documented in an alternate sectionGoals may be documented in an alternate sectionGoals may be documented in an alternate sectionGoals may be documented in an alternate sectionGoals may be documented in an alternate sectionGoals may be documented in an alternate sectionGoals may be documented in an alternate sectionGoals may be documented in an alternate sectionGoals may be documented in an alternate sectionGoals may be documented in an alternate sectionGoals may be documented in an alternate sectionGoals may be documented in an alternate section Care Teams (unrecognized sec tion and content) Team Status: Active Member Role Status Dates Dr. Francisco Eddy , Primary Care Provider Active Team Status: Inactive Member Role Status Dates Dr. Francisco Eddy , DO Primary Care Provider, Referoneida borja Provider Active Franko ENRIQUEZ, PA Attending Provider Active Team Status: Inactive Member Role Status Dates Dr. Francisco Eddy DO Primary Care Prov ider, Attending Provider, Referring Provider Active Team Status: Inactive Member Role Status Dates Dr. Francisco Eddy DO Primary Care Provider Active Franko ENRIQUEZ PA Attending Provider, Referring Provi cynthia Active Team Status: Active Member Role Status Dates Dr. Francisco Eddy DO Primary Care Provider Active Health Risk Assessment Attending Provider, Referring P rovider Active Team Status: Inactive Member Role Status Dates Dr. Francisco Eddy DO Primary Care Provider, Referrin g Provider Active Brenton ENRIQUEZ PA Attending Provider Active Team Status: Inactive Member Role Status Dates Dr. Francisco Eddy DO Primary Care Provider, Referrin g Provider Active Dr. Hank Cain MD Attending Provider Active Team Status: Inactive Member Role Status Dates Dr. Francisco Eddy DO Primary Care Provider Active Dr. Hank Cain MD Attending Provider, Referring Provi cynthia Active Team Status: Inactive Member Role Status Dates Dr. Francisco Eddy DO Primary Care Provider Active Start: August 25, 2024 End: August 25, 2024 Dr. Francisco Eddy DO Attending Provider Active Start: August 25, 2024 End: August 25, 2024 Dr. Francisco Eddy DO Referring Provider Active Start: August 25, 2024 End: August 25, 2024 Team Status: Inactive Member Role Status Dates Dr. Francisco Eddy DO Primary Care Provider Active Start: October 14, 2024 End: October 14, 2024 Dr. Francisco Eddy DO Attending Provider Active Start: October 14, 2024 End: October 14, 2024 Dr. Francisco Eddy DO Referring Provider Active Start: October 14, 2024 End: October 14, 2024 Team Status: Inactive Member Role Status Dates Dr. Francisco Eddy DO Primary Care Provider Active Start: December 19, 2024 End: December 19, 2024 Dr. Francisco Eddy DO Attending Provider Active Start: December 19, 2024 End: December 19, 2024 Dr. Francisco Eddy DO Referring Provider Active Start: December 19, 2024 End: December 19, 2024 FOR RECORDS PERTAINING TO PATIENTS WHO ARE [...] BE BASED ON THE PRIMARY CLINICAL RECORDS. [employer] [facility]. provides no warranty or guarantee of the accuracy or completeness of information in this document.
--- OUTSIDE RECORDS SUMMARY | 2025-04-07 21:45 | XMS RPT_ITS | CCD ---
Author Organization [facility] Care Team Providers Care Water Maintenance Supervisor Name Role Phone Dr. Francisco Eddy Primary Care Provider Dr. Francisco Eddy Referring Provider [phone] MINA Warner Attending Provider Dr. Francisco Eddy Primary Care Provider Dr. Francisco Eddy Referring Provider MINA Jarvis Attending Provider Dr. Francisco Eddy Primary Care Provider Dr. Francisco Eddy Referring Provider MINA Jarvis Attending Provider Dr. Francisco Eddy Primary Care Provider Dr. Francisco Eddy Referring Provider Dr. Hank Cain Attending Provider [phone] Dr. Francisco Eddy Primary Care Provider Dr. Francisco Eddy Referring Provider [phone] Hank Cain Attending Provider [phone] [...] Viewson Foot min 3 Views [facility] Imaging Services [address] [place], [place] [address] Foot min 3 Views MR#: [id number] Acct: [id number] Name: KYLIE DIXON Rep #: [id number] : 1965 F 59 From: Beck silva MD PCP: Dr. Francisco Eddy DO Status: [facility] Study: Foot min 3 Views Date of Exam: 10/14/24 Exam# [id number] Ordering Dr: Francisco Eddy DO [id number] STUDY: X-RAY - LEFT FOOT CLINICAL: Female, [...] EST , CC: Dr. Francisco Eddy DO Private Duty Aide: Signed Normal [facility] SCRN MAMM (CAD)W/MOUNIKA BILATo n 08-25-2024 SCRN MAMM (CAD)W/MOUNIKA BILAT [facility] Imaging Services [address] [place] [address] SCRN MAMM (CAD)W/MOUNIKA BILAT MR#: [id number] Acct: [id number] Name: KYLIE DIXON Rep #: [id number] : 1965 F 59 From: Beck silva MD PCP: Dr. Francisco Eddy DO Status: REG CLI Study: SCRN MAMM (CAD)W/MOUNIKA BILAT Date of Exam: 11/17 Exam# [id number] Ordering Dr: Francisco Eddy DO [id number] MAMMOGRAPHY - BILATERAL SCREENING REASON FOR EXAM: [...] delay biopsy of a clinically suspicious abnormality. [id number] Electronically Signed: Beck Qiu MD at 14:06 EST , CC: Dr. Francisco Eddy, Private Duty Aide: Signed Normal [facility] CBC, Employeeon 05-03-2024 Absolute Lymph 2.01 X10 3/uL Normal 0.83-4.51 [facility] Comment on above: Performed By: #### L 500.2900, L400.0100, L100.0200 #### [facility] [address] [place], [address] Absolute Neut 3.2 X10 3/uL Normal 2.0-7.7 [facility] Comment on above: Performed By: #### L 500.2900, L400.0100, L100.0200 #### [facility] [address] [place], [address] Basophils/100 WBC (Bld) 0.5 % Normal 0-1 [facility] Comment on above: Performed By: #### L 500.2900, L400.0100, L100.0200 #### [facility] [address] [place], [address] Eosinophils/100 WBC (Bld) 1.1 % Normal 0-5 [facility] Comment on above: Performed By: #### L 500.2900, L400.0100, L100.0200 #### [facility] [address] [place], [address] Erythrocyte distribution width (RBC) [Ratio] 13.7 % Normal 11.6-14.6 [facility] Comment on above: Performed By: #### L 500.2900, L400.0100, L100.0200 #### [facility] [address] [place], [address] Hematocrit (Bld) [Volume fraction] 38.6 % Normal 37-47 [facility] Comment on above: Performed By: #### L 500.2900, L400.0100, L100.0200 #### [facility] [address] [place], [address] Hemoglobin (Bld) [Mass/Vol] 12.3 g/dL Normal 12.0-15.0 [facility] Comment on above: Performed By: #### L 500.2900, L400.0100, L100.0200 #### [facility] [address] [place], [address] Lymphocytes/100 WBC (Bld) 35.8 % Normal 19-41 [facility] Comment on above: Performed By: #### L 500.2900, L400.0100, L100.0200 #### [facility] [address] [place], [address] MCH (RBC) [Entitic mass] 28.3 pg Normal 27.0-32.0 [facility] Comment on above: Performed By: #### L 500.2900, L400.0100, L100.0200 #### [facility] [address] [place], [address] MCHC (RBC) [Mass/Vol] 31.9 g/dL Low 32-36 [facility] Comment on above: Performed By: #### L 500.2900, L400.0100, L100.0200 #### [facility] [address] [place], [address] MCV (RBC) [Entitic vol] 88.7 fL Normal 81-99 [facility] Comment on above: Performed By: #### L 500.2900, L400.0100, L100.0200 #### [facility] [address] [place], [address] Monocytes/100 WBC (Bld) 5.7 % Normal 0-10 [facility] Comment on above: Performed By: #### L 500.2900, L400.0100, L100.0200 #### [facility] [address] [place], [address] Neutrophils/100 WBC (Bld) 56.5 % Normal 47-70 [facility] Comment on above: Performed By: #### L 500.2900, L400.0100, L100.0200 #### [facility] [address] [place], [address] NRBC # 0.00 10 3/uL Normal 0-5 [facility] Comment on above: Performed By: #### L 500.2900, L400.0100, L100.0200 #### [facility] [address] [place], [address] Nucleated RBC (Bld) [#/Vol] 0 10*3/uL Normal 0-5 [facility] Comment on above: Performed By: #### L 500.2900, L400.0100, L100.0200 #### [facility] [address] [place], [address] Platelet mean volume (Bld) [Entitic vol] 8.2 fL Normal 6.2-12.0 [facility] Comment on above: Performed By: #### L 500.2900, L400.0100, L100.0200 #### [facility] [address] [place], [address] Platelets (Bld) [#/Vol] 273 10*3/uL Normal 150-450 [facility] Comment on above: Performed By: #### L 500.2900, L400.0100, L100.0200 #### [facility] [address] [place], [address] RBC (Bld) [#/Vol] 4.35 10*6/uL Normal 4.2-5.4 [facility] Comment on above: Performed By: #### L 500.2900, L400.0100, L100.0200 #### [facility] [address] [place], [address] RDW SD 44.6 fl High 35.1-43.9 [facility] Comment on above: Performed By: #### L 500.2900, L400.0100, L100.0200 #### [facility] [address] [place], [address] WBC (Bld) [#/Vol] 5.6 10*3/uL Normal 4.4-11.0 [facility] Comment on above: Performed By: #### L 500.2900, L400.0100, L100.0200 #### [facility] [address] [place], [address] Employee Profileon 4 Albumin [Mass/Vol] 3.7 g/dL Normal 3.2-5.0 [facility] Comment on above: Performed By: #### L 500.2900, L400.0100, L100.0200 #### [facility] [address] [place], [address] Albumin/Globulin [Mass ratio] 1.0 {ratio} Normal 0.9-2.4 [facility] Comment on above: Performed By: #### L 500.2900, L400.0100, L100.0200 #### [facility] [address] [place], [address] ALK P 108 U/L Normal 45-117 [facility] Comment on above: Performed By: #### L 500.2900, L400.0100, L100.0200 #### [facility] [address] [place], [address] ALT [Catalytic activity/Vol] 31 U/L Normal 13-56 [facility] Comment on above: Performed By: #### L 500.2900, L400.0100, L100.0200 #### [facility] [address] [place], [address] AST [Catalytic activity/Vol] 23 U/L Normal 15-37 [facility] Comment on above: Performed By: #### L 500.2900, L400.0100, L100.0200 #### [facility] [address] [place], [address] Bilirubin [Mass/Vol] 0.40 mg/dL Normal 0.20-1.00 [facility] Comment on above: Result Comment: For patients on eltrombopag therapy, use of Dimension Weld TBIL is not recommended. Performed By: #### L 500.2900, L400.0100, L100.0200 #### [facility] [address] [place], [address] Bilirubin.direct [Mass/Vol] 0.14 mg/dL Normal 0.00-0.30 [facility] Comment on above: Performed By: #### L 500.2900, L400.0100, L100.0200 #### [facility] [address] [place], [address] BUN/CRE 16.4 RATIO Normal 10-20 [facility] Comment on above: Performed By: #### L 500.2900, L400.0100, L100.0200 #### [facility] [address] [place], [address] CA,Total 8.5 mg/dL Normal 8.5-10.1 [facility] Comment on above: Performed By: #### L 500.2900, L400.0100, L100.0200 #### [facility] [address] [place], [address] Chloride [Moles/Vol] 110 mmol/L High 98-107 [facility] Comment on above: Performed By: #### L 500.2900, L400.0100, L100.0200 #### [facility] [address] [place], [address] CHOL:HDL 1.80 Normal [facility] Comment on above: Performed By: #### L 500.2900, L400.0100, L100.0200 #### [facility] [address] [place], [address] Cholesterol [Mass/Vol] 216 mg/dL High 200 [facility] Comment on above: Result Comment: <200 mg/dL Desirable 200-240 mg/dL Borderline >240 mg/dL High Risk Performed By: #### L 500.2900, L400.0100, L100.0200 #### [facility] [address] [place], [address] Cholesterol in HDL [Mass/Vol] 121 mg/dL Normal [facility] Comment on above: Result Comment: The drugs N-Acetylcysteine and Metamizole may falsely depress this assay. Reference Range HDL <40 mg/dL Low HDL Cholesterol HDL >or= 60 mg/dL High HDL Cholesterol Performed By: #### L 500.2900, L400.0100, L100.0200 #### [facility] [address] [place], [address] Cholesterol in LDL [Mass/Vol] 86 mg/dL Normal 0-130 [facility] Comment on above: Performed By: #### L 500.2900, L400.0100, L100.0200 #### [facility] [address] [place], [address] Cholesterol in VLDL [Mass/Vol] 9 mg/dL Normal 5-40 [facility] Comment on above: Performed By: #### L 500.2900, L400.0100, L100.0200 #### [facility] [address] [place], [address] CO2 [Moles/Vol] 30.0 mmol/L Normal 21.0-32.0 [facility] Comment on above: Performed By: #### L 500.2900, L400.0100, L100.0200 #### [facility] [address] [place], [address] Creatinine [Mass/Vol] 0.73 mg/dL Normal 0.55-1.02 [facility] Comment on above: Result Comment: The validity of the calculated GFR GFRAA in patients over 70 years has not been determined. Clinical correlation is essential. Performed By: #### L 500.2900, L400.0100, L100.0200 #### [facility] [address] [place], [address] EST GFR - AA 106 mL/min Normal >60 [facility] Comment on above: Result Comment: Afri can Micronesian GFR Calc Performed By: #### L 500.2900, L400.0100, L100.0200 #### [facility] [address] [place], [address] GAP 1 Low 5-15 [facility] Comment on above: Performed By: #### L 500.2900, L400.0100, L100.0200 #### [facility] [address] [place], [address] GFR/1.73 sq M.predicted among non-blacks MDRD (S/P/Bld) [Vol rate/Area] 87 mL/min/{1.73_m2} Normal >60 [facility] Comment on above: Result Comment: Non- GFR Calc Performed By: #### L 500.2900, L400.0100, L100.0200 #### [facility] [address] [place], [address] Globulin (S) [Mass/Vol] 3.6 g/dL Normal 2.2-4.2 [facility] Comment on above: Performed By: #### L 500.2900, L400.0100, L100.0200 #### [facility] [address] [place], [address] Glucose [Mass/Vol] 96 mg/dL Normal 74-106 [facility] Comment on above: Performed By: #### L 500.2900, L400.0100, L100.0200 #### [facility] [address] [place], [address] LDH 172 U/L Normal 84-246 [facility] Comment on above: Performed By: #### L 500.2900, L400.0100, L100.0200 #### [facility] [address] [place], [address] Phosphate [Mass/Vol] 2.2 mg/dL Low 2.5-4.9 [facility] Comment on above: Performed By: #### L 500.2900, L400.0100, L100.0200 #### [facility] [address] [place], [address] Potassium [Moles/Vol] 3.9 mmol/L Normal 3.5-5.1 [facility] Comment on above: Performed By: #### L 500.2900, L400.0100, L100.0200 #### [facility] [address] [place], [address] Sodium [Moles/Vol] 141 mmol/L Normal 136-145 [facility] Comment on above: Performed By: #### L 500.2900, L400.0100, L100.0200 #### [facility] [address] [place], [address] T PROT 7.3 g/dL Normal 6.4-8.2 [facility] Comment on above: Performed By: #### L 500.2900, L400.0100, L100.0200 #### [facility] [address] [place], [address] Triglyceride [Mass/Vol] 46 mg/dL Normal [facility] Comment on above: Result Comment: The drugs N-Acetylcysteine and Metamizole may falsely depress this assay. Serum Triglycerides Reference Interval Normal <150 mg/dL Borderline high 150 - 199 mg/dL High 200 - 499 mg/dL Very High > or = 500 mg/dL Performed By: #### L 500.2900, L400.0100, L100.0200 #### [facility] [address] [place], [address] Urea nitrogen [Mass/Vol] 12 mg/dL Normal 7-18 [facility] Comment on above: Performed By: #### L 500.2900, L400.0100, L100.0200 #### [facility] [address] [place], [address] URIC 4.6 mg/dL Normal 2.6-6.0 [facility] Comment on above: Result Comment: The drugs N-Acetylcysteine and Metamizole may falsely depress this assay. Performed By: #### L 500.2900, L400.0100, L100.0200 #### [facility] [address] [place], [address] Urinalysis, Employeeon 05-03 BILIRUBIN URINE Negative Normal Negative [facility] Comment on above: Performed By: #### L 500.2900, L400.0100, L100.0200 #### [facility] [address] [place], [address] Clarity (U) Clear Normal Clear [facility] Comment on above: Performed By: #### L 500.2900, L400.0100, L100.0200 #### [facility] [address] [place], [address] Color (U) Yellow Normal Yellow [facility] Comment on above: Performed By: #### L 500.2900, L400.0100, L100.0200 #### [facility] [address] [place], [address] GLUCOSE, UR Normal Normal Normal [facility] Comment on above: Performed By: #### L 500.2900, L400.0100, L100.0200 #### [facility] [address] [place], [place], [facility] KETONE UR Negative Normal Negative [facility] Comment on above: Performed By: #### L 500.2900, L400.0100, L100.0200 #### [facility] [address] [place], [address] LEUK ESTERASE Negative Normal Negative [facility] Comment on above: Performed By: #### L 500.2900, L400.0100, L100.0200 #### [facility] [address] [place], [address] Nitrite Ql (U) Negative Normal Negative [facility] Comment on above: Performed By: #### L 500.2900, L400.0100, L100.0200 #### [facility] [address] [place], [address] OCCULT BLOOD-UR 10 /ul Abnormal Negative [facility] Comment on above: Performed By: #### L 500.2900, L400.0100, L100.0200 #### [facility] [address] [place], [address] pH UR 6.0 Normal 5.0 - 8.0 [facility] Comment on above: Performed By: #### L 500.2900, L400.0100, L100.0200 #### [facility] [address] [place], [address] PROT DIPSTX Negative Normal Negative [facility] Comment on above: Performed By: #### L 500.2900, L400.0100, L100.0200 #### [facility] [address] [place], [address] SP.GR. DIPSTX 1.015 Normal 1.002-1.030 [facility] Comment on above: Performed By: #### L 500.2900, L400.0100, L100.0200 #### [facility] [address] [place], [address] UROBILI Normal Normal Normal [facility] Comment on above: Performed By: #### L 500.2900, L400.0100, L100.0200 #### [facility] [address] [place], [address] Basophil percentageOrdered B y: Hank Cain on 11-19-2023 Chloride [Moles/Vol] 104 mmol/L 98-107 [facility] Glucose [Mass/Vol] 93 mg/dL 74-106 [facility] Potassium [Moles/Vol] 3.7 mmol/L 3.5-5.1 [facility] Sodium [Moles/Vol] 139 mmol/L 136-145 [facility] - Chemistry and C hemistry - challengeOrdered By: Hank Cain on 11-19-2023 CO2 [Moles/Vol] 28.0 mmol/L 21.0-32.0 [facility] Urea nitrogen/Creatinine [Mass ratio] 8.5 mg/mg 10-20 [facility] No Panel InformationOrdered By: Hank Cain on 11-19-2023 Estimated GFR (MDRD) Amer 93 mL/min >60 [facility] Comment on above: GFR Calc Estimated GFR (MDRD) Non-Af Amer 77 mL/min >60 [facility] Comment on above: Non- GFR Calc Vitamin D 25-Hydroxy 49.2 ng/mL [facility] Comment on above: Vitamin D 25(OH) Sta tus Range Deficiency <20 ng/mL (50nmol/L) Insufficiency 20 - 30 ng/mL (50 - 75 nmol/L) Sufficiency 30 - 100 ng/mL (75 - 250 nmol/L) Toxicity >100 ng/mL (>250 nmol/L) Serum or plasma calcium dion urement (mass/volume)Ordered By: Hank Cain on 11-19-2023 Calcium [Mass/Vol] 9.3 mg/dL 8.5-10.1 [facility] Serum or plasma creatinine m easurement (mass/volume)Ordered By: Hank Cain on 11-19-2023 Creatinine [Mass/Vol] 0.82 mg/dL 0.55-1.02 [facility] Comment on above: The validity of the calculated GFR & GFRAA in patients over 70 years has not been determined. Clinical correlation is essential. Serum or plasma urea nitroge n measurement (mass/volume)Ordered By: Hank Cain on 11-19-2023 Urea nitrogen [Mass/Vol] 7 mg/dL 7-18 [facility] Thin prep Papanicolaou smear with manual screeningOrdered By: Hank Cain on 11-19-2023 Thin prep Papanicolaou smear with manual screening 7 5-15 [facility] No Panel InformationOrdered By: Hank Cain on 10-30-2023 Parathyroid Hormone (Intact) 33.0 pg/mL 18.4-80.1 [facility] Serum or plasma calcium dion urement (mass/volume)Ordered By: Hank Cain on 10-30-2023 Calcium [Mass/Vol] 9.9 mg/dL 8.5-10.1 [facility] 24 hour urine calcium measur ement (mass/time)Ordered By: Hank Cain on 09-25-2023 Calcium (24H U) [Mass/Time] TNP [facility] Comment on above: Test not performed 24 hour urine specimen volum e measurementOrdered By: Hank Cain on 09-25-2023 Specimen volume (24H U) 2.1 L [facility] - Chemistry and C hemistry - challengeOrdered By: Hank Cain on 09-25-2023 pH (U) 2 [pH] [facility] - Specimen inform ationOrdered By: Hank Cain on 09-25-2023 Collection time ([place]) [Date/time] 24.0 HR 24.0-24.0 [facility] No Panel InformationOrdered By: Hank Cain on 09-25-2023 Urine Calcium < 5.0 Not Estab. [facility] No Panel InformationOrdered By: Hank Cain on 09-13-2023 Parathyroid Hormone (Intact) 102.8 pg/mL 18.4-80.1 [facility] Thyroid Stimulating Hormone (TSH) 2.37 uIU/mL 0.358-3.74 [facility] Vitamin D 25-Hydroxy 39.2 ng/mL [facility] Comment on above: Vitamin D 25(OH) Sta tus Range Deficiency <20 ng/mL (50nmol/L) Insufficiency 20 - 30 ng/mL (50 - 75 nmol/L) Sufficiency 30 - 100 ng/mL (75 - 250 nmol/L) Toxicity >100 ng/mL (>250 nmol/L) Absolute lymphocyte countOrd ered By: HEALTH ASSESSMENT on 05-10-2023 Lymphocytes Auto (Unsp spec) [#/Vol] 1.66 10*3/uL 0.83-4.51 [facility] Absolute reticulocyte countO rdered By: HEALTH ASSESSMENT on 05-10-2023 Reticulocytes (Bld) [#/Vol] 0.00 10*3/uL 0-5 [facility] Basophil percentageOrdered B y: HEALTH ASSESSMENT on 05-10-2023 Basophil percentage 3.1 mg/dL 2.5-4.9 [facility] Bilirubin [Mass/Vol] 0.50 mg/dL 0.20-1.00 [facility] Comment on above: For patients on eltr ombopag therapy, use of Dimension Weld TBIL is not recommended. Chloride [Moles/Vol] 105 mmol/L 98-107 [facility] Cholesterol [Mass/Vol] 223 mg/dL <200 [facility] Comment on above: <200 mg/dL Desirable 200-240 mg/dL Borderline >240 mg/dL High Risk Glucose [Mass/Vol] 89 mg/dL 74-106 [facility] LDH [Catalytic activity/Vol] 190 U/L 84-246 [facility] Neutrophils (Bld) [#/Vol] 3.5 10*3/uL 2.0-7.7 [facility] Potassium [Moles/Vol] 4.1 mmol/L 3.5-5.1 [facility] Protein [Mass/Vol] 7.6 g/dL 6.4-8.2 [facility] Sodium [Moles/Vol] 139 mmol/L 136-145 [facility] Triglyceride [Mass/Vol] 69 mg/dL <199 [facility] Comment on above: The drugs N-Acetylcy steine and Metamizole may falsely depress this assay.Serum Triglycerides Reference Interval Normal <150 mg/dL Borderline high 150 - 199 mg/dL High 200 - 499 mg/dL Very High > or = 500 mg/dL WBC (Bld) [#/Vol] 5.5 10*3/uL 4.4-11.0 [facility] Bilirubin Test strip Ql (U)O rdered By: HEALTH ASSESSMENT on 05-10-2023 Bilirubin Ql (U) Negative Negative [facility] Blood erythrocytes count (nu mber/volume)Ordered By: HEALTH ASSESSMENT on 05-10-2023 RBC (Bld) [#/Vol] 4.23 10*6/uL 4.2-5.4 [facility] Blood hemoglobin measurement (mass/volume)Ordered By: HEALTH ASSESSMENT on 05-10-2023 Hemoglobin (Bld) [Mass/Vol] 12.2 g/dL 12.0-15.0 [facility] Blood platelet mean volumeOr dered By: HEALTH ASSESSMENT on 05-10-2023 Platelet mean volume (Bld) [Entitic vol] 8.2 fL 6.2-12.0 [facility] Determination of erythrocyte mean corpuscular volume (MCV)Ordered By: HEALTH ASSESSMENT on 05-10-2023 MCV (RBC) [Entitic vol] 92.9 fL 81-99 [facility] Direct bilirubinOrdered By: HEALTH ASSESSMENT on 05-10-2023 Bilirubin.direct [Mass/Vol] 0.14 mg/dL 0.00-0.30 [facility] Hematocrit Auto (Bld) [Volum e fraction]Ordered By: HEALTH ASSESSMENT on 05-10-2023 Hematocrit (Bld) [Volume fraction] 39.3 % 37-47 [facility] Ketones Test strip Ql (U)Ord ered By: HEALTH ASSESSMENT on 05-10-2023 Ketones Ql (U) Negative Negative [facility] - Chemistry and C hemistry - challengeOrdered By: HEALTH ASSESSMENT on 05-10-2023 ALP [Catalytic activity/Vol] 125 U/L 45-117 [facility] ALT [Catalytic activity/Vol] 42 U/L 13-56 [facility] Cholesterol.total/Choles terol in HDL [Mass ratio] 1.90 {ratio} [facility] CO2 [Moles/Vol] 30.0 mmol/L 21.0-32.0 [facility] Globulin (S) [Mass/Vol] 3.7 g/dL 2.2-4.2 [facility] Urea nitrogen/Creatinine [Mass ratio] 12.8 mg/mg 10-20 [facility] - Hematology and Cell countsOrdered By: HEALTH ASSESSMENT on 05-10-2023 Erythrocyte distribution width (RBC) [Entitic vol] 44.6 fL 35.1-43.9 [facility] Erythrocyte distribution width (RBC) [Ratio] 13.1 % 11.6-14.6 [facility] MCH (RBC) [Entitic mass] 28.8 pg 27.0-32.0 [facility] Nucleated RBC/100 WBC (Bld) [Ratio] 0 % 0-5 [facility] MCHC Auto (RBC) [Mass/Vol]Or dered By: HEALTH ASSESSMENT on 05-10-2023 MCHC (RBC) [Mass/Vol] 31.0 g/dL 32-36 [facility] Nitrite Test strip Ql (U)Ord ered By: HEALTH ASSESSMENT on 05-10-2023 Nitrite Ql (U) Negative Negative [facility] No Panel InformationOrdered By: HEALTH ASSESSMENT on 05-10-2023 Estimated GFR (MDRD) Amer 111 mL/min >60 [facility] Comment on above: GFR Calc Estimated GFR (MDRD) Non-Af Amer 92 mL/min >60 [facility] Comment on above: Non- GFR Calc No Panel InformationOrdered By: Francisco Eddy on 05-10-2023 Vitamin D 25-Hydroxy 28.5 ng/mL [facility] Comment on above: Vitamin D 25(OH) Sta tus Range Deficiency <20 ng/mL (50nmol/L) Insufficiency 20 - 30 ng/mL (50 - 75 nmol/L) Sufficiency 30 - 100 ng/mL (75 - 250 nmol/L) Toxicity >100 ng/mL (>250 nmol/L) Platelets bldOrdered By: LILIBETH [facility] ASSESSMENT on 05-10-2023 Platelets (Bld) [#/Vol] 265 10*3/uL 150-450 [facility] Protein Test strip Ql (U)Ord ered By: HEALTH ASSESSMENT on 05-10-2023 Protein Ql (U) Negative Negative [facility] Segmented neutrophils/100 WB C Auto (Bld)Ordered By: HEALTH ASSESSMENT on 05-10-2023 Segmented neutrophils/100 WBC (Bld) 64.2 % 47-70 [facility] Serum or plasma albumin dion urement (mass/volume)Ordered By: HEALTH ASSESSMENT on 05-10-2023 Albumin [Mass/Vol] 3.9 g/dL 3.2-5.0 [facility] Serum or plasma albumin/glob ulin mass ratioOrdered By: HEALTH ASSESSMENT on 05-10-2023 Albumin/Globulin [Mass ratio] 1.1 {ratio} 0.9-2.4 [facility] Serum or plasma calcium dion urement (mass/volume)Ordered By: HEALTH ASSESSMENT on 05-10-2023 Calcium [Mass/Vol] 9.3 mg/dL 8.5-10.1 [facility] Serum or plasma cholesterol in HDL measurement (mass/volume)Ordered By: HEALTH ASSESSMENT on 05-10-2023 Cholesterol in HDL [Mass/Vol] 119 mg/dL >40 [facility] Comment on above: The drugs N-Acetylcy steine and Metamizole may falsely depress this assay. Reference Range HDL <40 mg/dL Low HDL Cholesterol HDL >or= 60 mg/dL High HDL Cholesterol Serum or plasma cholesterol in VLDL measurement (mass/volume)Ordered By: HEALTH ASSESSMENT on 05-10-2023 Cholesterol in VLDL [Mass/Vol] 14 mg/dL 5-40 [facility] Serum or plasma creatinine m easurement (mass/volume)Ordered By: HEALTH ASSESSMENT on 05-10-2023 Creatinine [Mass/Vol] 0.70 mg/dL 0.55-1.02 [facility] Comment on above: The validity of the calculated GFR & GFRAA in patients over 70 years has not been determined. Clinical correlation is essential. Serum or plasma low density lipoprotein (LDL) cholesterol measurement (mass/volume)Ordered By: HEALTH ASSESSMENT on 05-10-2023 Cholesterol in LDL [Mass/Vol] 90 mg/dL 0-130 [facility] Serum or plasma urea nitroge n measurement (mass/volume)Ordered By: HEALTH ASSESSMENT on 05-10-2023 Urea nitrogen [Mass/Vol] 9 mg/dL 7-18 [facility] Serum or plasma uric acid me asurement (mass/volume)Ordered By: HEALTH ASSESSMENT on 05-10-2023 Urate [Mass/Vol] 4.3 mg/dL 2.6-6.0 [facility] Comment on above: The drugs N-Acetylcy steine and Metamizole may falsely depress this assay. Thin prep Papanicolaou smear with manual screeningOrdered By: HEALTH ASSESSMENT on 05-10-2023 Thin prep Papanicolaou smear with manual screening 25 U/L 15-37 [facility] Thin prep Papanicolaou smear with manual screening 4 5-15 [facility] Urine blood detectionOrdered By: HEALTH ASSESSMENT on 05-10-2023 RBC Ql (U) 10 /ul Negative [facility] Urine clarityOrdered By: A LT ASSESSMENT on 05-10-2023 Clarity (U) Clear Clear [facility] Urine color determinationOrd ered By: HEALTH ASSESSMENT on 05-10-2023 Color (U) Straw Yellow [facility] Urine glucose detectionOrder ed By: HEALTH ASSESSMENT on 05-10-2023 Glucose Ql (U) Normal mg/dl Normal [facility] Urine leukocyte esterase det ection by dipstickOrdered By: HEALTH ASSESSMENT on 05-10-2023 Leukocyte esterase Test strip Ql (U) Negative Negative [facility] Urine pHOrdered By: HEALTH A SSESSMENT on 05-10-2023 pH (U) 7.0 [pH] 5.0 - 8.0 [facility] Urine specific gravity measu rementOrdered By: HEALTH ASSESSMENT on 05-10-2023 Specific gravity (U) [Rel density] 1.010 1.002-1.030 [facility] Urobilinogen Auto test strip Ql (U)Ordered By: HEALTH ASSESSMENT on 05-10-2023 Urobilinogen Ql (U) Normal mg/dl Normal [facility] Culture, urineOrdered By: Esthela Will on 11-10-2022 Bacteria identified Cx Nom (U) Culture exhibits no growth. [facility] Basophil percentageOrdered B y: Franko Will on 11-08-2022 Basophil percentage 5-10 SEEN /hpf 0-5 [facility] Bilirubin Test strip Ql (U)O rdered By: Franko Will on 11-08-2022 Bilirubin Ql (U) Negative Negative [facility] Ketones Test strip Ql (U)Ord ered By: Franko Will on 11-08-2022 Ketones Ql (U) Negative Negative [facility] Mucus LM Ql (Urine sed)Order ed By: Franko Will on 11-08-2022 Mucus Ql (Urine sed) 0 SEEN /hpf [facility] Nitrite Test strip Ql (U)Ord ered By: Franko Will on 11-08-2022 Nitrite Ql (U) Negative Negative [facility] Protein Test strip Ql (U)Ord ered By: Franko Will on 11-08-2022 Protein Ql (U) 15 mg/dl Negative [facility] Squamous epithelial cells de tection in urine sediment by light microscopyOrdered By: Franko Will on 11-08-2022 Epithelial cells.squamous LM Ql (Urine sed) 0-5 SEEN /hpf 5-10 [facility] Urine blood detectionOrdered By: Franko Will on 11-08-2022 RBC Ql (U) 25 /ul Negative [facility] RBC Ql (U) 0 SEEN /hpf 0-5 [facility] Urine clarityOrdered By: Jay Jay Will on 11-08-2022 Clarity (U) Sl. Cloudy Clear [facility] Urine color determinationOrd ered By: Franko Will on 11-08-2022 Color (U) Yellow Yellow [facility] Urine glucose detectionOrder ed By: Franko Will on 11-08-2022 Glucose Ql (U) Normal mg/dl Normal [facility] Urine leukocyte esterase det ection by dipstickOrdered By: Franko Will on 11-08-2022 Leukocyte esterase Test strip Ql (U) 500 /ul Negative [facility] Urine pHOrdered By: Franko morgan on 11-08-2022 pH (U) 6.5 [pH] 5.0 - 8.0 [facility] Urine sediment bacteria coun t by microscopy (number/high power field)Ordered By: Franko Will on 11-08-2022 Bacteria LM.HPF (Urine sed) [#/Area] RARE /hpf None Seen [facility] Urine specific gravity measu rementOrdered By: Franko Will on 11-08-2022 Specific gravity (U) [Rel density] 1.010 1.002-1.030 [facility] Urobilinogen Auto test strip Ql (U)Ordered By: Franko Will on 11-08-2022 Urobilinogen Ql (U) Normal mg/dl Normal [facility] Laboratory - Chemistry and C hemistry - challengeon 11-07-2022 Bilirubin Ql (U) Negative [facility] Glucose Ql (U) Negative [facility] Ketones Ql (U) Negative [facility] pH (U) 5.0 [pH] [facility] Specific gravity (U) [Rel density] 1.005 [facility] Urobilinogen (U) [Mass/Vol] 0.5278176 mg/dL [facility] Laboratory - Hematology and Cell countson 11-07-2022 Hemoglobin Ql (U) Moderate [facility] Laboratory - Specimen inform ationon 11-07-2022 Clarity (U) Clear [facility] Color (U) Yellow [facility] Laboratory - Urinalysison Nitrite Ql (U) Negative [facility] Protein Ql (U) Negative [facility] No Panel Informationon 11-07 Urine Leukocytes Positive [facility] Urine Non-Hemolyzed Blood Negative [facility] Absolute lymphocyte counton 05-08-2022 Lymphocytes Auto (Unsp spec) [#/Vol] 1.49 10*3/uL 0.83-4.51 [facility] Work Phone: Absolute reticulocyte counto n 05-08-2022 Reticulocytes (Bld) [#/Vol] 0.00 10*3/uL 0-5 [facility] Work Phone: Basophil percentageon 2021 Basophil percentage 2.9 mg/dL 2.5-4.9 [facility] Work Phone: [phone] Bilirubin [Mass/Vol] 0.40 mg/dL 0.20-1.00 [facility] Work Phone: [phone] Comment on above: For patients on eltr ombopag therapy, use of Dimension Weld TBIL is not recommended. Chloride [Moles/Vol] 104 mmol/L 98-107 [facility] Work Phone: Cholesterol [Mass/Vol] 210 mg/dL <200 [facility] Work Phone: [phone] Comment on above: <200 mg/dL Desirable 200-240 mg/dL Borderline >240 mg/dL High Risk Glucose [Mass/Vol] 91 mg/dL 74-106 [facility] Work Phone: Neutrophils (Bld) [#/Vol] 3.1 10*3/uL 2.0-7.7 [facility] Work Phone: [phone] Potassium [Moles/Vol] 4.1 mmol/L 3.5-5.1 [facility] Work Phone: [phone] Protein [Mass/Vol] 7.5 g/dL 6.4-8.2 [facility] Work Phone: [phone] Sodium [Moles/Vol] 140 mmol/L 136-145 [facility] Work Phone: [phone] Triglyceride [Mass/Vol] 56 mg/dL <199 [facility] Work Phone: [phone] Comment on above: The drugs N-Acetylcy steine and Metamizole may falsely depress this assay.Serum Triglycerides Reference Interval Normal <150 mg/dL Borderline high 150 - 199 mg/dL High 200 - 499 mg/dL Very High > or = 500 mg/dL WBC (Bld) [#/Vol] 5.0 10*3/uL 4.4-11.0 [facility] Work Phone: Bilirubin Test strip Ql (U)o n 05-08-2022 Bilirubin Ql (U) Negative Negative [facility] Work Phone: [phone] Blood erythrocytes count (nu mber/volume)on 05-08-2022 RBC (Bld) [#/Vol] 4.41 10*6/uL 4.2-5.4 [facility] Work Phone: [phone] Blood hemoglobin measurement (mass/volume)on 05-08-2022 Hemoglobin (Bld) [Mass/Vol] 12.6 g/dL 12.0-15.0 [facility] Work Phone: [phone] Blood platelet mean volumeon 05-08-2022 Platelet mean volume (Bld) [Entitic vol] 8.4 fL 6.2-12.0 [facility] Work Phone: [phone] Determination of erythrocyte mean corpuscular volume (MCV)on 05-08-2022 MCV (RBC) [Entitic vol] 90.2 fL 81-99 [facility] Work Phone: [phone] Direct bilirubinon Bilirubin.direct [Mass/Vol] 0.15 mg/dL 0.00-0.30 [facility] Work Phone: [phone] Hematocrit Auto (Bld) [Volum e fraction]on 05-08-2022 Hematocrit (Bld) [Volume fraction] 39.8 % 37-47 [facility] Work Phone: [phone] Ketones Test strip Ql (U)on 05-08-2022 Ketones Ql (U) Negative Negative [facility] Work Phone: [phone] Laboratory - Chemistry and C hemistry - challengeon 05-08-2022 ALP [Catalytic activity/Vol] 138 U/L 45-117 [facility] Work Phone: ALT [Catalytic activity/Vol] 34 U/L 13-56 [facility] Work Phone: [phone] Cholesterol.total/Choles terol in HDL [Mass ratio] 1.90 {ratio} [facility] Work Phone: [phone] CO2 [Moles/Vol] 31.0 mmol/L 21.0-32.0 [facility] Work Phone: [phone] Globulin (S) [Mass/Vol] 3.9 g/dL 2.2-4.2 [facility] Work Phone: [phone] Urea nitrogen/Creatinine [Mass ratio] 18.8 mg/mg 10-20 [facility] Work Phone: [phone] Laboratory - Hematology and Cell countson 05-08-2022 Erythrocyte distribution width (RBC) [Entitic vol] 50.4 fL 35.1-43.9 [facility] Work Phone: [phone] Erythrocyte distribution width (RBC) [Ratio] 15.1 % 11.6-14.6 [facility] Work Phone: [phone] MCH (RBC) [Entitic mass] 28.6 pg 27.0-32.0 [facility] Work Phone: [phone] Nucleated RBC/100 WBC (Bld) [Ratio] 0 % 0-5 [facility] Work Phone: [phone] MCHC Auto (RBC) [Mass/Vol]on 05-08-2022 MCHC (RBC) [Mass/Vol] 31.7 g/dL 32-36 [facility] Work Phone: [phone] Nitrite Test strip Ql (U)on 05-08-2022 Nitrite Ql (U) Negative Negative [facility] Work Phone: [phone] Panel Informationon 05-08 Estimated GFR (MDRD) Amer 113 mL/min >60 [facility] Work Phone: [phone] Comment on above: GFR Calc Estimated GFR (MDRD) Non-Af Amer 94 mL/min >60 [facility] Work Phone: [phone] Comment on above: Non- GFR Calc Platelets bldon 05-08-2022 Platelets (Bld) [#/Vol] 305 10*3/uL 150-450 [facility] Work Phone: Protein Test strip Ql (U)on 05-08-2022 Protein Ql (U) Negative Negative [facility] Work Phone: Segmented neutrophils/100 WB C Auto (Bld)on 05-08-2022 Segmented neutrophils/100 WBC (Bld) 61.3 % 47-70 [facility] Work Phone: Serum or plasma albumin dion urement (mass/volume)on 05-08-2022 Albumin [Mass/Vol] 3.6 g/dL 3.2-5.0 [facility] Work Phone: Serum or plasma albumin/glob ulin mass ratioon 05-08-2022 Albumin/Globulin [Mass ratio] 0.9 {ratio} 0.9-2.4 [facility] Work Phone: Serum or plasma calcium dion urement (mass/volume)on 05-08-2022 Calcium [Mass/Vol] 9.2 mg/dL 8.5-10.1 [facility] Work Phone: Serum or plasma cholesterol in HDL measurement (mass/volume)on 05-08-2022 Cholesterol in HDL [Mass/Vol] 108 mg/dL >40 [facility] Work Phone: Comment on above: The drugs N-Acetylcy steine and Metamizole may falsely depress this assay. Reference Range HDL <40 mg/dL Low HDL Cholesterol HDL >or= 60 mg/dL High HDL Cholesterol Serum or plasma cholesterol in VLDL measurement (mass/volume)on 05-08-2022 Cholesterol in VLDL [Mass/Vol] 11 mg/dL 5-40 [facility] Work Phone: Serum or plasma creatinine m easurement (mass/volume)on 05-08-2022 Creatinine [Mass/Vol] 0.69 mg/dL 0.55-1.02 [facility] Work Phone: Comment on above: The validity of the calculated GFR & GFRAA in patients over 70 years has not been determined. Clinical correlation is essential. Serum or plasma low density lipoprotein (LDL) cholesterol measurement (mass/volume)on 05-08-2022 Cholesterol in LDL [Mass/Vol] 91 mg/dL 0-130 [facility] Work Phone: Serum or plasma urea nitroge n measurement (mass/volume)on 05-08-2022 Urea nitrogen [Mass/Vol] 13 mg/dL 7-18 [facility] Work Phone: [phone] Serum or plasma uric acid me asurement (mass/volume)on 05-08-2022 Urate [Mass/Vol] 4.0 mg/dL 2.6-6.0 [facility] Work Phone: Comment on above: The drugs N-Acetylcy steine and Metamizole may falsely depress this assay. Thin prep Papanicolaou smear with manual screeningon 05-08-2022 Thin prep Papanicolaou smear with manual screening 29 U/L 15-37 [facility] Work Phone: [phone] Thin prep Papanicolaou smear with manual screening 5 5-15 [facility] Work Phone: Thin prep Papanicolaou smear with manual screening 177 U/L 84-246 [facility] Work Phone: Urine blood detectionon 04-24 RBC Ql (U) Negative Negative [facility] Work Phone: Urine clarityon 05-08-2022 Clarity (U) Clear Clear [facility] Work Phone: Urine color determinationon 05-08-2022 Color (U) Straw Yellow [facility] Work Phone: Urine glucose detectionon Glucose Ql (U) Normal mg/dl Normal [facility] Work Phone: Urine leukocyte esterase det ection by dipstickon 05-08-2022 Leukocyte esterase Test strip Ql (U) Negative Negative [facility] Work Phone: [phone] Urine pHon 05-08-2022 pH (U) 8.0 [pH] 5.0 - 8.0 [facility] Work Phone: Urine specific gravity measu rementon 05-08-2022 Specific gravity (U) [Rel density] 1.010 1.002-1.030 [facility] Work Phone: Urobilinogen Auto test strip Ql (U)on 05-08-2022 Urobilinogen Ql (U) Normal mg/dl Normal [facility] Work Phone: PROGRESSon 10-23-2019 PROGRESS HNO ID: [id number] Author: Renu Downs Service: ? Author Type: Employment Coordinator Type: Progress Notes Filed: 10/23/2019 2:37 PM Note Text: [facility] REVENUE ACCOUNTANT QUICKNOTE Provider Action/FYI: Unable to contact patient. Letters mailed to patient. Patient identified by name and . Renu Downs CMA [facility] PROGRESSon 10-21-2019 PROGRESS HNO ID: [id number] Author: Renu Downs Service: ? Author Type: Employment Coordinator Type: Progress Notes Filed: 10/23/2019 2:37 PM Note Text: [facility] REVENUE ACCOUNTANT QUICKNOTE Provider Action/FYI: Kylie left me a voicemail asking for a call back. I called back and left another message for patient to return my call. Patient identified by name and . Renu Downs CMA [facility] PROGRESSon 10-20-2019 PROGRESS HNO ID: [id number] Author: Renu Downs Service: ? Author Type: Employment Coordinator Type: Progress Notes Filed: 10/23/2019 2:37 PM Note Text: [facility] REVENUE ACCOUNTANT QUICKNOTE Provider Action/FYI: 2nd attempt - Left message for patient to return call #[phone] Patient identified by name and . Renu Downs CMA [facility] PROGRESSon 10-16-2019 PROGRESS HNO ID: [id number] Author: Renu Downs Service: ? Author Type: Employment Coordinator Type: Progress Notes Filed: 10/23/2019 2:37 PM Note Text: [facility] REVENUE ACCOUNTANT QUICKNOTE Provider Action/FYI: 1st attempt - Left message for patient to return call #[phone] Patient identified by name and . Renu Downs CMA [facility] ZACKKYLIE ([id number]) 1965 F Date Time Provider [facility] During your visit today, we recorded the following information about you: Renu Downs CMA 10/23/2019 2:37 PM Signed [facility] CARE GAP REGISTRY DOCUMENTATION (OUTSIDE TEAMLET) Provider [...] office visit: re-establish care/verify pcp ALY Mayfield, [facility] 10/23/2019 2:37 PM Signed [facility] ASSISTANT ESTELA Provider Action/FYI: 1st attempt - Left message for patient to return call #[phone] Patient identified by name and . ALY Mayfield [facility] 10/23/2019 2:37 PM Signed [facility] REVENUE ACCOUNTANT ESTELA Provider Action/FYI: 2nd attempt - Left message for patient to return call #[phone] Patient identified by name and . ALY Mayfield [facility] 10/23/2019 2:37 PM Signed [facility] ASS[facility] ESTELA Provider Action/FYI: Kylie left me a voicemail asking for a call back. I called back and left another message for patient to return my call. Patient identified by name and . ALY Mayfield [facility] 10/23/2019 2:37 PM Signed [facility] ASSIST[facility] ESTELA Provider Action/FYI: Unable to contact patient. Letters mailed to patient. Patient identified by name and . Renu Downs CMA Allergies As of Date: 10/14/2019 (No Known Allergies) Date Reviewed: 01/23/2018 Reviewed by: Hong Bingham - Fully Assessed Reason for Visit: MA/Care Gap Outreach [[id number]] Prescriptions as of 10/14/2019 Sig: CYCLOSPORINE 0.05 [...] Status:Closed by RENU DOWNS CMA on 10/23/19 [facility] PROGRESSon 10-14-2019 PROGRESS HNO ID: [id number] Author: Renu Downs Service: ? Author Type: Employment Coordinator Type: Progress Notes Filed: 10/23/2019 2:37 PM Note Text: [facility] CARE GAP REGISTRY DOCUMENTATION (OUTSIDE TEAMLET) Provider [...] visit: re-establish care/verify pcp Renu Downs CMA [facility] Vital Signs Date Time Vital Sign Value Performing Clinician Faci lity 12-19-2024 12:52-0400 Body height 162.[address] Francisco Eddy DO Work Phone: [facility] 12-19-2024 12:52-0400 Body temperature 96.1 [degF] Dr. Francisco Eddy DO Work Phone: [facility] 12-19-2024 12:52-0400 Diastolic blood pressure 73 mm[Hg] Dr. Francisco Eddy DO Work Phone: [facility] 12-19-2024 12:52-0400 Heart rate 68 /min Dr. Francisco Eddy DO Work Phone: [facility] 12-19-2024 12:52-0400 Respiratory rate 16 /min Dr. Francisco Eddy DO Work Phone: [facility] 12-19-2024 12:52-0400 SaO2% (BldA) [Mass fraction] 100 % Dr. Francisco Eddy DO Work Phone: [facility] 12-19-2024 12:52-0400 Systolic blood pressure 137 mm[Hg] Dr. Francisco Eddy DO Work Phone: [facility] 12-27-2023 08:54-0400 Body height 162.[address] Francisco Eddy Work Phone: [facility] 12-27-2023 08:54-0400 Body temperature 96 [degF] Dr. Francisco Eddy Work Phone: [facility] 12-27-2023 08:54-0400 Diastolic blood pressure 63 mm[Hg] Dr. Francisco Eddy Work Phone: [facility] 12-27-2023 08:54-0400 Heart rate 66 /min Dr. Francisco Eddy Work Phone: [facility] 12-27-2023 08:54-0400 Respiratory rate 16 /min Dr. Francisco Eddy Work Phone: [facility] 12-27-2023 08:54-0400 Systolic blood pressure 118 mm[Hg] Dr. Francisco Eddy Work Phone: [facility] 09-07-2023 09:52-0500 Body height 162.[address] Francisco Eddy Work Phone: [facility] 09-07-2023 09:52-0500 Body mass index (BMI) [Ratio] 25.6 kg/m2 Dr. Francisco Eddy Work Phone: [facility] 09-07-2023 09:52-0500 Body temperature 98.8 [degF] Dr. Francisco Eddy Work Phone: [facility] 09-07-2023 09:52-0500 Body weight 67.[address] Francisco Eddy Work Phone: [facility] 09-07-2023 09:52-0500 Diastolic blood pressure 72 mm[Hg] Dr. Francisco Eddy Work Phone: [facility] 09-07-2023 09:52-0500 Heart rate 78 /min Dr. Francisco Eddy Work Phone: [facility] 09-07-2023 09:52-0500 Respiratory rate 16 /min Dr. Francisco Eddy Work Phone: [facility] 09-07-2023 09:52-0500 SaO2% (BldA) [Mass fraction] 97 % Dr. Francisco Eddy Work Phone: [facility] 09-07-2023 09:52-0500 Systolic blood pressure 114 mm[Hg] Dr. Francisco Eddy Work Phone: [facility] 06-21-2023 13:43-0400 Body height 162.[address] Francisco Eddy Work Phone: [facility] 06-21-2023 13:43-0400 Body temperature 96.8 [degF] Dr. Francisco Eddy Work Phone: [facility] 06-21-2023 13:43-0400 Diastolic blood pressure 48 mm[Hg] Dr. Francisco Eddy Work Phone: [facility] 06-21-2023 13:43-0400 Heart rate 70 /min Dr. Francisco Eddy Work Phone: [facility] 06-21-2023 13:43-0400 Respiratory rate 16 /min Dr. Francisco Eddy Work Phone: [facility] 06-21-2023 13:43-0400 SaO2% (BldA) [Mass fraction] 100 % Dr. Francisco Eddy Work Phone: [facility] 06-21-2023 13:43-0400 Systolic blood pressure 115 mm[Hg] Dr. Francisco Eddy Work Phone: [facility] 05-21-2023 12:06-0400 Body height 162.[address] Francisco Eddy Work Phone: [facility] 05-21-2023 12:06-0400 Body mass index (BMI) [Ratio] 25.4 kg/m2 Dr. Francisco Eddy Work Phone: [facility] 05-21-2023 12:06-0400 Body temperature 98.2 [degF] Dr. Francisco Eddy Work Phone: [facility] 05-21-2023 12:06-0400 Body weight 67.[address] Francisco Eddy Work Phone: [facility] 05-21-2023 12:06-0400 Diastolic blood pressure 85 mm[Hg] Dr. Francisco Eddy Work Phone: [facility] 05-21-2023 12:06-0400 Heart rate 88 /min Dr. Francisco Eddy Work Phone: [facility] 05-21-2023 12:06-0400 Respiratory rate 16 /min Dr. Francisco Eddy Work Phone: [facility] 05-21-2023 12:06-0400 SaO2% (BldA) [Mass fraction] 97 % Dr. Francisco Eddy Work Phone: [facility] 05-21-2023 12:06-0400 Systolic blood pressure 132 mm[Hg] Dr. Francisco Eddy Work Phone: [facility] 11-07-2022 17:01-0500 Body temperature 97.8 [degF] Dr. Francisco Eddy Work Phone: [facility] 11-07-2022 17:01-0500 Diastolic blood pressure 78 mm[Hg] Dr. Francisco Eddy Work Phone: [facility] 11-07-2022 17:01-0500 Heart rate 88 /min Dr. Francisco Eddy Work Phone: [facility] 11-07-2022 17:01-0500 Respiratory rate 18 /min Dr. Francisco Eddy Work Phone: [facility] 11-07-2022 17:01-0500 SaO2% (BldA) [Mass fraction] 97 % Dr. Francisco Eddy Work Phone: [facility] 11-07-2022 17:01-0500 Systolic blood pressure 120 mm[Hg] Dr. Francisco Eddy Work Phone: [facility] 08-07-2022 15:22-0500 Body height 162.56 cm [facility] 08-07-2022 15:22-0500 Body weight 66.95 kg [facility] 07-20-2022 17:13-0400 Body weight 66.85 kg [facility] 06-24-2022 01:41-0400 Body weight 66.67 kg [facility] Work Phone: 06-12-2022 15:53-0400 Body height 162.56 cm [facility] Work Phone: 06-12-2022 15:53-0400 Body weight 66.67 kg [facility] Work Phone: 05-18-2022 15:47-0400 Body height 162.56 cm [facility] Work Phone: 05-18-2022 15:47-0400 Body weight 67.31 kg [facility] Work Phone: Encounters Encounter Date Encounter Type Care Provider Facility Start: 12-19-2024 End: 12-19-[address] Francisco Eddy DO -Medical Out Work Phone: Start: 12-19-2024 End: 12-19-[address] Francisco Eddy DO Work Phone: [facility] Work Phone: Start: 10-14-2024 End: 10-14-[address] Francisco Eddy DO -Radiology, [place] Work Phone: Start: 10-14-2024 End: 10-14-2024 ambulatory Francisco Eddy Facility:[facility] Start: 09-08-2024 ambulatory [facility] Facility:[facility] Start: 08-25-2024 End: 08-25-[address] Francisco Eddy DO -Outpatient Breast Imaging Work Phone: Start: 08-25-2024 End: 08-25-2024 ambulatory Francisco Eddy Facility:[facility] Start: 06-20-2024 End: 06-20-2024 ambulatory Francisco Eddy Facility:[facility] Start: 05-03-2024 ambulatory Health Risk Assessment Facility:[facility] Start: 12-27-2023 End: 12-27-[address] Francisco Eddy Work Phone: [facility]-Medical Out Work Phone: Start: 12-27-2023 End: 12-27-[address] Francisco Eddy Work Phone: [facility] Work Phone: Start: 11-19-2023 End: 11-19-[address] Francisco Eddy Work Phone: [facility] Work Phone: Start: 11-19-2023 End: 11-19-[address] Francisco Eddy Work Phone: [facility] Work Phone: Start: 10-30-2023 End: 10-30-[address] Francisco Eddy Work Phone: [facility] Work Phone: Start: 10-30-2023 End: 10-30-[address] Francisco Eddy Work Phone: [facility] Work Phone: Start: 09-25-2023 End: 09-25-[address] Francisco Eddy Work Phone: [facility] Work Phone: Start: 09-25-2023 End: 09-25-[address] Francisco Eddy Work Phone: [facility] Work Phone: Start: 09-13-2023 End: 09-13-[address] Francisco Eddy Work Phone: [facility] Work Phone: Start: 09-07-2023 End: 09-07-[address] Francisco Eddy Work Phone: [facility] Work Phone: Start: 08-22-2023 End: 08-22-[address] Frnacisco Eddy Work Phone: [facility] Work Phone: Start: 08-22-2023 End: 08-22-[address] Francisco Eddy Work Phone: [facility]-Outpatient Breast Imaging Work Phone: Start: 06-21-2023 End: 06-21-[address] Francisco Eddy Work Phone: [facility] Work Phone: Start: 06-21-2023 End: 06-21-[address] Francisco Eddy Work Phone: [facility] Work Phone: Start: 05-24-2023 End: 05-24-[address] Francisco Eddy Work Phone: [facility] Work Phone: Start: 05-24-2023 End: 05-24-[address] Francisco Eddy Work Phone: [facility]-Outpatient Bone Densitometry Work Phone: Start: 05-21-2023 End: 05-21-[address] Francisco Eddy Work Phone: [facility] Work Phone: Start: 05-10-2023 End: 05-10-2023 ambulatory [facility] Work Phone: Start: 05-10-2023 End: 05-10-2023 Patient encounter procedure [facility]Laboratory Work Phone: Start: 05-10-2023 Registered Referred [facility] Start: 11-08-2022 End: 11-08-[address] Francisco Eddy Work Phone: [facility] Work Phone: Start: 11-08-2022 End: 11-08-[address] Francisco Eddy Work Phone: [facility]-Laboratory, Specimen Start: 11-07-2022 End: 11-07-[address] Francisco Eddy Work Phone: [facility] Start: 08-11-2022 End: 08-11-2022 ambulatory [facility] Work Phone: Start: 08-11-2022 End: 08-11-2022 Patient encounter procedure [facility]-Outpatient Breast Imaging Start: 08-07-2022 End: 08-23-2022 ambulatory [facility] Work Phone: Start: 08-07-2022 End: 08-23-2022 Discharged Recurring [facility] Start: 08-07-2022 Registered Recurring [facility] Start: 07-20-2022 End: 07-24-2022 ambulatory [facility] Work Phone: Start: 07-20-2022 End: 07-24-2022 Discharged Recurring [facility] Start: 06-12-2022 End: 06-23-2022 ambulatory [facility] Work Phone: Start: 06-12-2022 End: 06-23-2022 Discharged Recurring [facility] Start: 05-18-2022 End: 05-24-2022 ambulatory [facility] Work Phone: Start: 05-18-2022 End: 05-24-2022 Discharged Recurring [facility] Start: 05-08-2022 Registered Referred [facility], [place] Start: 12-26-2021 End: 12-26-2021 Patient encounter procedure [facility], Specimen Procedures Date Procedure Procedure Detail Performing [...] energy X-ray absorptiometry Dexa Bone Density Study [facility] Start: 05-24-2023 DXA Bone [Mass/Area] Bone density [facility] Immunizations Immunization Date Immunization Notes Care Provider Fa cility 07-01-2021 influenza, injectabl e, quadrivalent, preservative free Dr. Francisco Eddy Work Phone: [facility] 07-01-2021 influenza, seasonal, injectable [facility] 06-30-2020 influenza, injectabl e, quadrivalent, preservative free Dr. Francisco Eddy Work Phone: [facility] 06-30-2020 influenza, seasonal, injectable [facility] 07-09-2019 influenza, injectabl e, quadrivalent, preservative free Dr. Francisco Eddy Work Phone: [facility] 07-09-2019 influenza, seasonal, injectable [facility] 06-19-2018 influenza, injectabl e, quadrivalent, preservative free Dr. Francisco Eddy Work Phone: [facility] 06-19-2018 influenza, seasonal, injectable [facility] 07-18-2017 influenza, injectabl e, quadrivalent, preservative free Dr. Francisco Eddy Work Phone: [facility] 07-18-2017 influenza, seasonal, injectable [facility] 06-22-2016 influenza, injectabl e, quadrivalent, preservative free Dr. Francisco Eddy Work Phone: [facility] 06-22-2016 influenza, seasonal, injectable [facility] 06-10-2015 influenza, injectabl e, quadrivalent, preservative free Dr. Francisco Eddy Work Phone: [facility] 06-10-2015 influenza, seasonal, injectable [facility] 06-17-2014 influenza, injectabl e, quadrivalent, preservative free Dr. Francisco Eddy Work Phone: [facility] 06-17-2014 influenza, seasonal, injectable [facility] Payers Date Payer Category Payer Self-pay [id number] 2023 Unknown [id number] 2015 Unknown [id number] Unknown [id number] [id number] Unknown [id number] [id number] Unknown [id number] 2.16.8 [id number] Unknown [id number] 2.16.8 [id number] Unknown [id number] 2.16.8 [id number] Unknown [id number] [id number] [id number] Unknown [id number] [id number] [id number] Social History Date Type Detail Facility Start: 03-14-2018 End: 08-09-2023 Tobacco smoking status NHIS Unknown if ever smoked [facility] Start: 1965 Sex Assigned At Female [facility] Start: 08-09-2023 Tobacco smoking stat us PRIS Never smoked tobacco (finding) [facility] Start: 12-20-2024 Sex Female (finding) [facility] Mental Status Date Assessment Result Facility 12-19-2024 Cognitive function Awake;Alert;A ppropriate;Fol lows Commands [facility] Work Phone: 12-27-2023 Cognitive function Awake;Alert;A ppropriate;Fol lows Commands [facility] Work Phone: 06-21-2023 Cognitive function Voice/Name [facility] Work Phone: Evaluation note Note Date & Type Note Facility Evaluation note No assessment information availa ble [facility] Work Phone: Evaluation note Note Date & Type Note Facility Evaluation note Diagnosis Onset Date Cystitis acute [facility] Work Phone: Evaluation note Note Date & Type Note Facility Evaluation note Diagnosis Onset Date Impacted cerumen, right ear acute URI (upper respiratory infection) acute [facility] Work Phone: Evaluation note Note Date & Type Note Facility Evaluation note Diagnosis Onset Date Corticosteroid-induced osteoporosis chronic Osteoporosis noneactive [facility] Work Phone: Reason for referral (narrative) Note Date & Type Note Facility Reason for referral (narrative) No reason for referral information available [facility] Work Phone: Summary Purpose Family History No [...] No March 14, 2018 12:48pm Power of Rotary Kiln Operator No March 14 8 12:48pm Advance Directive Response Recorded Date/ Time Advance Directives No October 16, 2014 10:04am Living Will No March 14, 2018 11:48am Power of Rotary Kiln Operator No March 14 8 11:48am Advance Directive Response Recorded Date/ Time Living Will No March 14, 2018 12:48pm Do you have a Healthcare Power of Rotary Kiln Operator? No March 14, 2018 12:48pm Advance Directives [...] section and content) DATE CREATED AUTHOR 10/23/2019 [facility] DATE CREATED AUTHOR AUTHOR'S ORGANIZ ATION 12/24/2024 [facility] Goals (unrecognized section and content) Goals [...] BE BASED ON THE PRIMARY CLINICAL RECORDS. [facility]. provides no warranty or guarantee of the accuracy or completeness of information in this document.
== END | disposition home or self-care (01) ==
LOC: BFHLAB 13:41
PROVIDERS: PCP Family Medicine; Visit Provider Family Medicine
DX: E55.9 Vitamin D deficiency, unspecified (principal)
CPT/HCPCS: 36415; 82306

== ENCOUNTER 2025-06-19 08:28 | Outpatient (CLI) | payer OTHER, SELFPAY ==
[2025-06-19 08:38] VITALS: BP 118/47; PULSE 79; RESP 16; TEMP 35.7; O2SAT 99; BMI 24.9
[2025-06-19] MEDS: DENOSUMAB 60 MG/ML SC (08:40)
== END 2025-06-19 23:59 | disposition home or self-care (01) ==
LOC: MEDOUTP 08:29
PROVIDERS: PCP Family Medicine; Referring Provider Family Medicine; Visit Provider Family Medicine
DX: M81.0 Age-related osteoporosis without current pathological fracture (principal)
CPT/HCPCS: 96372; J0897

== ENCOUNTER → 2025-09-02 | Outpatient (CLI) | payer OTHER, SELFPAY ==
--- NOTE | 2025-09-02 08:22 | BI_ITS ---
EXAM: SCRN MAMM (CAD)W/MOUNIKA BILAT DATE: 09/02/2025 CLINICAL HISTORY: F, Age 60 y/o , SCREENING Mother with breast cancer. Aunts with breast cancer. TECHNIQUE: Procedure Code: [id number] Modality: MG Procedure: SCRN MAMM (CAD)W/MOUNIKA BILAT COMPARISON: Prior exam(s) dated August 25, 2024.. FINDINGS: TISSUE DENSITY: The breasts are heterogeneously dense, which may obscure small masses. Bilateral Breast Mammographic Findings: No significant masses, calcifications or other abnormalities are identified. No suspicious masses, areas of developing architectural distortion, or suspicious calcifications. There has been no significant interval change. BI/SCRN MAMM (CAD)W/MOUNIKA BILAT IMPRESSION: Stable bilateral screening mammogram. OVERALL FINAL ASSESSMENT BI-RADS 1: NEGATIVE. RECOMMENDATION: Routine annual follow-up in 1 Year Additional Recommendation none A letter with findings and recommendations will be mailed to the patient. Reading Location: [place] [address]
== END | disposition home or self-care (01) ==
LOC: OPBI 08:05
PROVIDERS: PCP Family Medicine; Referring Provider Family Medicine; Visit Provider Family Medicine
DX: Z12.31 Encounter for screening mammogram for malignant neoplasm of breast (principal)
CPT/HCPCS: 77063; 77067